=== PATIENT | female | born 1995 | race Caucasian/White ===

== ENCOUNTER 2021-04-24 18:46 | Emergency (ER) | payer OTHER, SELFPAY ==
--- NOTE | ~2021-04-24 | XR_ITS ---
EXAMINATION: XR chest 2V 04/24/2021 19:22 INDICATION: Chest pain PROCEDURE: 2 view chest COMPARISON: 07/26/2018 FINDINGS: The lungs are clear. The cardiomediastinal silhouette is within normal limits. There are no pleural effusions. There is no pneumothorax suspected. IMPRESSION: 1: NO ACUTE CARDIOPULMONARY DISEASE. Reviewed, dictated and finalized at location A. RUMENTATION SUPERVISOR
--- NOTE | 2021-04-24 18:49 | ECG_ITS ---
Measurements Intervals [place] Rate: 118 P: 65 MT: 118 QRS: 47 QRSD: 87 T: 44 QT: 315 QTc: 442 Interpretive Statements SINUS TACHYCARDIA WITH SHORT MT INTERVAL POSSIBLE LEFT ATRIAL ENLARGEMENT [-0.1mV P WAVE IN V1/V2] RSR' IN V1/V2 NONSPECIFIC ST DEPRESSION [0.05+ mV ST DEPRESSION] BORDERLINE ECG NO PREVIOUS ECG AVAILABLE FOR COMPARISON Electronically Signed On 04-25-2021 13:56:39 CERTIFIED NURSING ASSISTANT INSTRUCTOR by Isaias Rasmussen M.D.
[2021-04-24 19:02] VITALS: BP 151/84; PULSE 120; RESP 16; TEMP 36.6; O2SAT 100
--- NOTE | 2021-04-24 19:20 | ED.GENADULT ---
HPI - General Adult General Chief complaint: Chest Pain Stated complaint: Chest pain Source: patient Mode of arrival: ambulatory Limitations: no limitations History of Present Illness HPI narrative: Patient presents for evaluation of chest pain and palpitations. She indicates approximately a week ago she traveled down to [place]. She was in a motor vehicle for about a [address] Upon arriving there she developed palpitations. She cannot provide me with duration of time with which symptoms persisted. She states upon arriving home she has had several episodes of chest pain. Pain is in the sternal region and described as pounding , rated 8/10 in severity. She states she had chest pain earlier today that lasted approximately 2 hours in duration. She cannot tell me whether she is currently having chest pain. She denies any shortness of breath or leg swelling. No personal history of PE or DVT. However her maternal grandfather had a blood clot per her reports. She is not on exogenous estrogen. She does use an electronic cigarette. She states that she consumes quite a bit of caffeine and is wondering if that may be causing her symptoms. She has attempted to perform deep breathing exercises to assist with her symptoms. Denies any significant life stressors which could cause palpitations. Related Data Home Medications Medication Instructions Recorded Confirmed No Home Medications 04/24/21 04/24/21 Allergies Allergy/AdvReac Type Severity Reaction Status Date / Time nitrofurantoin Allergy Unknown RASH Verified 07/26/18 10:13 Review of Systems Review of Systems: CONSTITUTIONAL: Denies fever, chills, or sweats. EYES: Denies visual changes, redness, or discharge. ENT: Denies rhinorrhea, congestion, sore throat, or otalgia. CARDIOVASCULAR: Reports chest pain and palpitations. Denies edema. RESPIRATORY: Denies cough or dyspnea. GASTROINTESTINAL: Denies abdominal pain, nausea, vomiting, or diarrhea. GENITOURINARY: Denies dysuria or hematuria. SKIN: Denies rash or itching. MUSCULOSKELETAL: Denies back pain, joint pain, or myalgia. NEUROLOGIC: Denies headache, numbness, dizziness, or weakness. PSYCHIATRIC: Denies anxiety or depression. 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 HEAD: Normocephalic, atraumatic. EYES: PERRLA and EOMI. ENT: Nares clear, no rhinorrhea or epistaxis. Mucous membranes moist. Oropharynx without tonsillar hypertrophy exudate or other lesions. Bilateral TMs [place] nonbulging NECK: Supple. No adenopathy or masses. No carotid bruits or JVD CHEST: Clear to auscultation. No respiratory distress. No wheezes rales or rhonchi HEART: Heart rate variable, fluctuating between 104 and 115. No murmur heard. Normal peripheral pulses. ABDOMEN: Soft, nontender, nondistended, normal active bowel sounds. EXTREMITIES: Normal range of motion. No edema. SKIN: Warm, dry, no rash. NEURO: No focal deficits. Alert and oriented x3. PSYCH: Nor
== END 2021-04-24 19:27 | disposition short-term general hospital (02) ==
PROVIDERS: Emergency Provider Nurse Practitioner
DX: R07.9 Chest pain, unspecified (principal); F17.290 Nicotine dependence, other tobacco product, uncomplicated
CPT/HCPCS: 71046; 93005; 99213; G0463

== ENCOUNTER 2021-04-24 19:40 | Emergency (ER) | payer OTHER, SELFPAY ==
[2021-04-24] VITALS (11 sets, daily range): BP systolic 127–139; BP diastolic 79–83; PULSE 97–128; RESP 10–29; TEMP 37; O2SAT 96–100
--- NOTE | ~2021-04-24 | CT_ITS ---
EXAMINATION: CTA chest PE protocol DATE: 04/24/2021 22:59 INDICATION: Chest pain. TECHNIQUE: Computed tomography angiography (CTA) of the chest was performed with 100 mL Omnipaque-350 intravenous contrast timed to evaluate the pulmonary arteries. Coronal maximum intensity projection 3D-reconstructions were created by the technologist. Automated exposure control and iterative reconst ruction technique were employed. The dose-length product was 186.80 mGy-cm. COMPARISON: None. FINDINGS: There is no pneumonia or pleural effusion. The heart size is normal. No pericardial effusio n. There is no pulmonary embolus. The bones are unremarkable. IMPRESSION: 1. No pulmonary embolus. Sensitivity is mildly decreased by motion artifact. Reviewed, dictated and finalized at location A. T GROWER
--- NOTE | 2021-04-24 19:42 | ECG_ITS ---
Measurements Intervals [place] Rate: 100 P: VT: 0 QRS: 70 QRSD: 90 T: 42 QT: 323 QTc: 418 Interpretive Statements SINUS TACHYCARDIA AND INTERMITTENT ATRIAL TACHYCARDIA WITH SHORT VT INTERVAL RSR' V1/V2 NONSPECIFIC ST DEPRESSION [0.05+ mV ST DEPRESSION] ABNORMAL ECG COMPARED TO ECG 04/24/2021 18:59:00 ATRIAL TACHYCARDIA NOW PRESENT Electronically Signed On 04-25-2021 13:58:46 [employer] by Isaias Rasmussen M.D.
[2021-04-24 20:03] LABS: Basophils Absolute Auto 0.1 K/mm3 (0.0-0.1); Basophils Percent Auto 0.5 % (0.2-1.2); Eosinophils Percent Auto 0.2 % (0-4.4); Hematocrit 41.2 % (37.0-47.0); Hemoglobin 13.8 g/dL (12.0-15.0); Immature Granulocyte Absolute 0.04 K/mm3 (0.00-0.031); Immature Granulocyte Percent A 0.3 % (0-0.5); Lymphocytes Absolute Auto 1.17 K/mm3 (0.9-3.2); Lymphocytes Percent Auto 7.7 % (18.3-44.2); Mean Corpuscular HGB Conc 33.5 g/dl (32-36); Mean Corpuscular Hemoglobin 30.2 pg (26-34); Mean Corpuscular Volume 90.2 fl (80-100); Monocytes Absolute Auto 0.7 K/mm3 (0.1-0.6); Monocytes Percent Auto 4.6 % (2.6-8.5); Neutrophils Absolute Auto 13.2 K/mm3 (1.3-6.7); Neutrophils Percent Auto 86.7 % (45.5-73.1); Platelet Count Result 246 k/mm3 (150-375); Red Blood Count 4.57 M/mm3 (4.2-5.4); Red Cell Distribution Width 12.4 % (11.5-14.5); White Blood Count 15.3 K/mm3 (4.5-10.0)
--- NOTE | 2021-04-24 20:13 | ED.CHESTPAIN ---
HPI - Chest Pain General Chief Complaint: Chest Pain Stated Complaint: chest pain Time Seen by Provider: 04/24/21 19:46 Source: patient Mode of arrival: ambulatory Limitations: no limitations History of Present Illness HPI narrative: Patient is a 25-year-old female who presented to the ED from urgent care with complaints of lower midsternal chest pain. Patient she reports she went to [place] 1 week ago and drove 14 hours in the car at that time. She had no issues in the car, but experienced pain in her lower midsternal chest while at a concert a few days later. She also reported having palpitations at that time, described as though her heart was fluttering. The pain lasted for approximately 45 minutes before resolving. She did not take anything for this. Patient then drove 14 hours back a few days ago and developed pain in her lower midsternal chest again tonight around 4 PM. The pain has persisted tonight described as a dull ache. She also noted her heart rate to be elevated tonight, but notes she does feel anxious about the pain. Patient then went to an urgent care tonight and was referred here for further evaluation and PE rule out. Patient has Nexplanon control and does vape daily. She also notes she frequently drinks caffeine, but has been trying to avoid this the past few days due to her symptoms. Patient denies any other complaints, shortness of breath, cough, hemoptysis, BLE pain or edema, pain with inspiration, nausea, vomiting, headache, fever, chills. Related Data Home Medications Medication Instructions Recorded Confirmed No Home Medications 04/24/21 04/24/21 Allergies Allergy/AdvReac Type Severity Reaction Status Date / Time nitrofurantoin Allergy Unknown RASH Verified 04/24/21 19:50 Review of Systems Review of Systems: CONSTITUTIONAL: Denies fever, chills, or sweats. ENT: Denies rhinorrhea, congestion. CARDIOVASCULAR: Reports lower midsternal chest pain and fluttering palpitations. Denies BLE edema. RESPIRATORY: Denies cough or dyspnea. GASTROINTESTINAL: Denies abdominal pain, nausea, vomiting, or diarrhea. GENITOURINARY: Denies dysuria or hematuria. MUSCULOSKELETAL: Denies back pain, BLE pain. NEUROLOGIC: Denies headache, numbness, or weakness. PSYCHIATRIC: Reports anxiety. Denies depression. 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 HEAD: Normocephalic, atraumatic. NECK: Supple. No adenopathy, no masses. RESPIRATORY: Airway patent, respirations nonlabored. Clear to auscultation bilaterally, no rales, rhonchi, wheezing. CARDIOVASCULAR: Tachycardia, regular rhythm without murmurs, rubs, or gallops. Peripheral pulses 2+ and equal bilaterally. ABDOMINAL: Soft, nontender, nondistended, no hepatosplenomegaly. Normoactive BS. MUSCULOSKELETAL: Moves all extremities. Strength/ROM intact without gross deformities or TTP. No edema. No calf tenderness. SKIN: Warm, dry, normal color.
[2021-04-24 20:14] LABS: Alanine Aminotransferase 18 U/L (4-35); Albumin Level 5.1 g/dL (3.5-5.1); Alkaline Phosphatase 67 U/L (38-126); Anion Gap 12 mmol/L (8-16); Aspartate Amino Transferase 32 U/L (14-36); Bilirubin,Total 0.5 mg/dL (0.2-1.3); Blood Urea Nitrogen 12 mg/dL (7-17); Calcium 9.5 mg/dL (8.4-10.2); Carbon Dioxide 22 mmol/L (22-30); Chloride 104 mmol/L (98-107); Estimated CRCL calculation 91 ml/min; Estimated Glomerular Filt Rate > 60; Glucose 118 mg/dL (65-110); Lipase 41 U/L (23-300); Potassium 3.4 mmol/L (3.4-5.0); Sodium 138 mmol/L (137-145)
[2021-04-24 20:16] LABS: INR 1.1; Prothrombin Time 13.6 Seconds (11.1-14.7)
[2021-04-24 20:17] LABS: Partial Thromboplastin Time 27.6 SECONDS (22.3-36.8)
[2021-04-24 20:25] LABS: Troponin I < 0.012 ng/mL (0.000-0.034)
[2021-04-24] MEDS: ASPIRIN 81 MG CHEWABLE TABLET 324 MG PO (20:29)
[2021-04-24 20:55] LABS: D Dimer 0.27 ug/mL (<0.48)
[2021-04-24 21:20] LABS: Add Urine Microscopic? YES; Appearance Urine Clear (Clear); Bilirubin Urine Negative (Negative); Blood Urine 1+ (Negative); Color Urine Straw (Yellow); Glucose Urine UA Negative (Negative); Ketones Urine 1+ mg/dL (Negative); Leukocyte Esterase Ur Negative LEU/UL (Negative); Mucus Urine Rare /lpf; Nitrate Urine Negative (Negative); Protein Urine Negative (Negative); RBC Urine 0-2 /hpf (0-2); Specific Grav Ur 1.005 (1.001-1.035); Urobilinogen Urine Negative mg/dL (<2.0); WBC Urine 0-3 /hpf
[2021-04-24 22:24] LABS: Pregnancy On Board Control Positive; Urine Pregnancy Test Negative
[2021-04-24] MEDS: SODIUM CHLORIDE 0.9% IV 1,000 ML 999 ML IV CONT (22:24)
--- NOTE | 2021-04-24 22:46 | PC.NURSE ---
Patient taken to CT via w/c.
== END 2021-04-24 23:53 | disposition home or self-care (01) ==
PROVIDERS: Emergency Medicine; Physician Assistant; Emergency Provider Emergency Medicine; PCP Family Medicine Sports Medicine
DX: R07.89 Other chest pain (principal); R00.2 Palpitations; F17.290 Nicotine dependence, other tobacco product, uncomplicated; R00.0 Tachycardia, unspecified; R94.31 Abnormal electrocardiogram [ECG] [EKG]
CPT/HCPCS: 36415; 71046; 71275; 80053; 81001; 81025; 83690; 83735; 84443; 84484; 85025; 85380; 85610; 85730; 93005; 96360; 99284; A9270; J7030; Q9967

== ENCOUNTER 2022-12-29 12:00 | Emergency (ER) | payer OTHER, SELFPAY ==
[2022-12-29 12:12] VITALS: BP 116/89; PULSE 73; RESP 16; TEMP 36.8; O2SAT 100
[2022-12-29 12:13] VITALS: BP 116/89; PULSE 73; RESP 16; TEMP 36.8; O2SAT 100
--- NOTE | 2022-12-29 12:15 | ED.SKABFB ---
HPI - Skin/Abscess/Foreign Bdy General Chief complaint: Skin/Abscess/Foreign Body Stated complaint: RASH Time Seen by Provider: 12/29/22 12:15 Source: patient Mode of arrival: ambulatory Limitations: no limitations History of Present Illness HPI narrative: 27-year-old female presented for complaint of poison solo to both arms. She states she was clearing brush 2 days ago. The rash spread over the arms and to the neck and small spot to the abdomen since yesterday. Endorses itching and oozing from some of the sites. She has applied calamine lotion and did an [id number] scrub for itching. Denies lip, tongue, or throat swelling, shortness of breath or wheezing. Denies changes to soap, detergent, lotion, or any other exposures. No one else in the house or any contacts with similar symptoms. Related Data Allergies Allergy/AdvReac Type Severity Reaction Status Date / Time nitrofurantoin Allergy Unknown RASH Verified 12/29/22 12:12 Review of Systems Review of Systems: CONSTITUTIONAL: Denies body aches, fever, chills, or sweats. EYES: Denies visual changes, redness, or discharge. ENT: Denies rhinorrhea, congestion CARDIOVASCULAR: Denies chest pain, palpitations, or edema. RESPIRATORY: Denies cough or dyspnea. GASTROINTESTINAL: Denies abdominal pain, nausea, vomiting, or diarrhea. SKIN: Reports itchy rash MUSCULOSKELETAL: Denies back pain, joint pain, or myalgia. NEUROLOGIC: Denies headache, numbness, tingling, or weakness. 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 Please see nursing chart for further information. There is no relevant family history pertinent to the presenting complaint Exam Narrative: GENERAL: Well-appearing HEAD: Normocephalic, atraumatic. EYES: conjunctivae clear, and EOMI. ENT: Mucous membranes moist. Oropharynx without edema, erythema or lesions. NECK: Supple. No lymphadenopathy CHEST: Clear to auscultation. HEART: Regular rate and rhythm. SKIN: Warm, dry. Diffuse vesicles on erythematous base to bilateral forearms, distal forearms with oozing from large clusters of vesicles, right forearm also with a linear pattern. Left neck and left face with small clusters of vesicles. Left abdomen with approx 1cm diameter vesicles. C/w poison solo. No induration or purulent drainage. Nontender. NEURO: Alert and oriented x3. Course Course Emergency Course: Patient is aware of diagnosis, understands and agrees to treatment plan. Anticipatory guidance given. Patient agrees to follow-up as directed and is aware of reasons to seek care at the emergency department. Portions of this record may have been created with voice recognition software Level of Care: Express Care Visit Vital Signs Vital signs: Vital Signs Temperature 98.2 F 12/29/22 12:12 Pulse Rate 73 12/29/22 12:12 Respiratory Rate 16 12/29/22 12:12 Blood Pressure 116/89 12/29/22 12:12 Pulse Oximetry 100 12/29/22 12:12
== END 2022-12-29 12:29 | disposition home or self-care (01) ==
PROVIDERS: Emergency Provider Nurse Practitioner Family
DX: L25.9 Unspecified contact dermatitis, unspecified cause (principal); F17.290 Nicotine dependence, other tobacco product, uncomplicated
CPT/HCPCS: 99213; G0463

== ENCOUNTER 2024-04-22 10:42 | Outpatient (CLI) | payer BC, SELFPAY | END 2024-04-22 10:43 | disposition home or self-care (01) | PROVIDERS: PCP Family Medicine; Visit Provider Advanced Practice Midwife | DX: R00.2 Palpitations (principal) | CPT/HCPCS: 93242 ==

== ENCOUNTER 2024-07-08 12:51 | Outpatient (CLI) | payer BC, SELFPAY ==
--- NOTE | ~2024-07-08 | US_ITS ---
EXAMINATION: US venous doppler [facility] DATE: 07/08/2024 13:39 INDICATION: Right lower limb pain TECHNIQUE: Grayscale ultrasound images without and with compression and Doppler ultrasound images of the bilateral lower extremity veins were obtained. COMPARISON: None. FINDINGS: The visualized portions of right common femoral vein, profunda (deep) femoral vein, femoral vein, pop liteal vein, posterior tibial veins, peroneal veins, gastrocnemius vein and greater saphenous vein ou tflow are patent. The visualized portions of left common femoral vein, profunda femoral vein, femoral vein, popliteal v ein, posterior tibial veins, peroneal veins, gastrocnemius vein and greater saphenous vein outflow ar e patent. IMPRESSION: No deep venous thrombosis in the bilateral lower extremities. No sonographic abnormality within the area of clinical concern (the right leg, inferior to the knee). Reviewed, dictated and finalized at location A.
--- OUTSIDE RECORDS SUMMARY | 2024-07-08 12:57 | XMS_ITS | Clinical Summary ---
Author Organization [facility] [place] Address [address] [place] [id number] Care Team Providers Care Stewardess Supervisor Name Role Phone Elder Herman MD Primary Care Provider Allergies Active Allergy Reactions Criticality Noted Date Comments Nitrofurantoin Hives,Rash Low 04/16/2023 Medications No known medications Active Problems No known active problems Family History Medical History Relation Comments No Known Problems Father Atrial fibrillation Maternal Grandmother No Known Problems Mother Relation Status Comments Father Maternal Grandmother Mother Social History Tobacco Use Types Packs/Day Years Used Date Smoking Tobacco: Never Passive Smoke Exposure: Never Smokeless Tobacco: Never Tobacco Cessation:Counseling Given: Not Answered Alcohol Use Standard Drinks/Week Comments Yes 4 (1 standard drink = 0.6 oz pur e alcohol) Comments Unknown Sex and Gender Information Value Date Recorded Sex Assigned at Not on file Legal Sex Female 10:41 AM ANIMAL CARE TAKER Gender Identity Not on file Sexual Orientation Not on file Last Filed Vital Signs Vital Sign Reading Time Taken Comments Blood Pressure 118/68 10/08/2023 1:33 PM CDT Pulse 61 10/08/2023 1:33 PM CDT Temperature - - Respiratory Rate - - Oxygen Saturation 98% 10/08/2023 1:33 PM CDT Inhaled Oxygen Concentration - - Weight 82.8 kg (182 lb 9.6 oz) 10/08/2023 1:33 P M CDT Height 172.7 cm (5' 8 ) 10/08/2023 1:33 PM CDT Body Mass Index 27.76 10/08/2023 1:33 PM CDT Plan of Treatment Health Maintenance Due Date Last Done Comments Cervical Cancer Screening Pa p Smear (Age 21 to 29) Every 3 Years 1996 Cervical Cancer Screening 1996 Annual Physical 09/28/1999 Hepatitis C 2014 DTaP, Tdap and Td Vaccines ( 1 - Tdap) 09/28/2015 Hepatitis B Vaccines (1 of 3 - 19+ 3-dose series) 09/28/2015 COVID-19 Vaccine (1 - 2023-2 5 season) 2023 HPV Vaccines Aged Out No longer eligi ble based on patient's age to complete this topic Meningococcal B Vaccine Aged Out No l onger eligible based on patient's age to complete this topic Meningococcal Vaccine Aged Out No leanne jacki eligible based on patient's age to complete this topic Pneumococcal Vaccine: Pediat rics (0 to 5 Years) and At-Risk Patients (6 to 49 Years) Aged Out No longer eligible b ased on patient's age to complete this topic RSV Immunizations Under 20 Months Aged Out No longer eligible based on patient's age to complete this topic Insurance [facility] Care Teams Stewardess Supervisor Relationship Specialty Start Date End Date Elder Herman MD [address] [id number] PCP - General FAMILY PRACTICE 04/09/23
--- OUTSIDE RECORDS SUMMARY | 2024-07-08 12:57 | XMS_ITS | Continuity of Care Document ---
Author Organization [facility] Address [address] [place] [address] Care Team Providers Care Fire Control Technician Name Role Phone MULTICARE SPECIALIST Primary Care Provider Assessment No assessment recorded. Plan of Treatment Reminders Order Date Submit Date Provider Last Modified By Organization Details Last Modified Time Details Appointments U/S OB GROWTH 2024 11:00A M ULTRASOUND Not available Not available Not available OB ROUTINE 2024 11:30A M Cyndee Hill CNM Not available Not available Not available Lab None recorde d. Referral None recorde d. Procedures None recorde d. Surgeries None recorde d. Imaging US, obstetr ic, follow- up 2024 [id number] [email or web address] [facility], [address], [place], [address], 07/08/2024 12:58:52 Medication Orders None recorde d. Patient TargetsNo targets recorded. Patient InstructionsNo instructions recorded. Reason for Referral None Reported. Results Created Date Observation Date Name Description Value Unit Range Abnormal Flag Note LastModifiedBy Organization Detail LastModifiedTime 02/21/1902/22/2024 US, obste tric, nucha l trans lucen cy No observ ation record ed. [facility] [address], [place], [address], 02/22/2024 17:07:29 02/21/19 25 02/22/2024 US, obste tric, nucha l trans lucen cy No observ ation record ed. [email or web address] [address], [place], [address], 02/23/2024 13:00:14 04/16/19 25 04/16/2024 US, obste tric, 2nd or 3rd trime ster No observ ation record ed. [email or web address] [facility] [address], [place], [address], 04/16/2024 18:02:55 04/16/19 25 04/16/2024 US, obste tric, follo w-up No observ ation record ed. [email or web address] [address], [place], [address], 04/21/2024 22:25:35 05/05/19 25 04/22/2024 cathy r monit or No observ ation record ed. [email or web address] [facility] [address], [place], [address], 05/06/2024 16:52:47 05/15/19 25 05/14/2024 US, obste tric, follo w-up No observ ation record ed. [email or web address] [facility] [address], [place], [address], 05/14/2024 18:22:56 05/15/19 25 05/14/2024 US, obste tric, follo w-up No observ ation record ed. [email or web address] [address], [place], [address], 05/29/2024 13:24:47 06/11/19 25 06/10/2024 US, obste tric, follo w-up No observ ation record ed. [email or web address] [address], [place], [address], 06/16/2024 15:41:53 06/11/19 25 06/10/2024 US, obste tric, follo w-up No observ ation record ed. [email or web address] [address], [place], [address], 06/10/2024 14:45:01 06/25/19 25 06/24/2024 US, obste tric, limit ed No observ ation record ed. [email or web address] [address], [place], [address], 06/24/2024 13:34:37 06/25/19 25 06/24/2024 US, obste tric, follo w-up No observ ation record ed. [email or web address] [address], [place], [address], 07/01/2024 13:40:58 07/09/19 25 07/08/2024 US, obste tric, follo w-up No observ ation record ed. [facility] [address], [place], [address], 07/08/2024 13:55:54 07/09/19 25 07/08/2024 US, obste tric, follo w-up No observ ation record ed. [email or web address] [address], [place], [address], 07/08/2024 12:40:39 Result Notes None recorded. Problems Name Problem SNOMED Code Status Onset Date Resolution Date Notes Provider Name and Address Organization Details Recorded Time Uses contrace ptive implant 339889866 Completed 201909/16/2020 due out 05/2022 Roberta hinds [facility] 12:20:31 Urinary tract infectio us disease 93166136 Completed 201609/16/2020 Urinary tract infectio n, site not specifie d;Practi ce ID: 0001 Roberta hinds [facility] 12:20:28 Evaluati on finding Completed 201609/16/2020 Hematuri a, unspecif ied;Prac yared ID: 0001 Roberta hinds, [facility] 12:19:42 Procedur e Completed 201609/16/2020 Enctr srvlnc implanta ble subderma l contrace ptive;Pr actice ID: 0001 Roberta hinds, [facility] 12:19:59 Pregnanc y test negative [id number] Completed 201609/16/2020 Encounte r for pregnanc y test, result negative ;Practic e ID: 0001 Roberta hinds, [facility] 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 12:20:12 Sexually transmit ezekile infectio us disease 8515863 Completed 201709/16/2020 Unspecif ied sexually transmit ezekiel disease; Practice ID: 0001 Roberta hinds, [facility] 12:20:05 Acute vaginiti s 18925481 Completed 201709/16/2020 Acute vaginiti s;Practi ce ID: 0001 Roberta hinds, [facility] 12:19:31 Contrace ptive sheath status [id number] Completed 201909/16/2020 Encounte r for initial prescrip tion of other contrace ptives;P ractice ID: 0001 Roberta hinds, [facility] 12:19:[address] Concept Completed 201709/16/2020 Encntr for general adult medical exam w/o abnormal findings ;Recorde d Elsewher e: No Locat ion: [facility] S ource: EHR Optical Laboratory Technician paulo: N Practi ce ID: 0001 Feliz lable Time: 01:30:00 PM Roberta Coleman [facility] [address] 12:20:[address] Concept Completed 201509/16/2020 Encntr for routine child health exam w/o abnormal findings ;Recorde d Elsewher e: No Locat ion: [facility] S ource: EHR Optical Laboratory Technician paulo: N Practi ce ID: 0001 Feilz lable Time: 01:30:00 PM Roberta Coleman [facility] 12:20:10 Speciali zed medical examinat ion Completed 201409/16/2020 ROUTINE PHYSICAL THERAPY COORDINATOR EXAMINAT ION;Jon rded Elsewher e: No Locat ion: [facility] S ource: EHR Optical Laboratory Technician paulo: N Practi ce ID: 0001 Feliz lable Time: 01:30:00 PM Roberta Coleman [facility] 12:20:18 Syphilis test finding [id number] Completed 201509/16/2020 Encntr screen for infectio ns w sexl mode of transmis s;Record ed Elsewher e: No Locat ion: [facility] S ource: EHR Optical Laboratory Technician paulo: N Practi ce ID: 0001 Feliz lable Time: 01:30:00 PM Roberta Coleman [facility] 12:20:23 Screenin g for malignan t neoplasm of cervix Completed 201309/16/2020 Screenin g for malignan t neoplasm s of the cervix;R ecorded Elsewher e: No Locat ion: [facility] S ource: EHR Optical Laboratory Technician paulo: N Practi ce ID: 0001 Feliz lable Time: 09:15:00 AM Roberta Coleman [facility] 1 12:20:02 Speciali zed medical examinat ion Completed 201409/16/2020 Other specifie d chlamydi al diseases ;Recorde d Elsewher e: No Locat ion: [facility] S ource: EHR Optical Laboratory Technician paulo: N Practi ce ID: 0001 Feliz lable Time: 01:30:00 PM Roberta hinds, [facility] [address] 12:20:[address] Concept Completed 201909/16/2020 Nexplano n;Record ed Elsewher e: No Locat ion: [facility] S ource: EHR Optical Laboratory Technician paulo: N Practi ce ID: 0001 Feliz lable Time: 01:00:00 PM Roberta hinds, [facility] 1 12:20:15 Implanta tion of subcutan eous contrace ptive Completed 201309/16/2020 Insertio n of implanta ble subderma l contrace ptive;Re corded Elsewher e: No Locat ion: [facility] S ource: EHR Optical Laboratory Technician paulo: N Practi ce ID: 0001 Feliz lable Time: 10:30:00 AM Roberta hinds, [facility] 1 12:19:48 Venereal disease screenin g Completed 201409/16/2020 Screenin g examinat ion for venereal disease; Recorded Elsewher e: No Locat ion: [facility] S ource: EHR Optical Laboratory Technician paulo: N Practi ce ID: 0001 Feliz lable Time: 01:30:00 PM Roberta hinds [facility] 1 12:20:33 Infectio n screenin g Completed 201509/16/2020 Encounte r for screenin g for oth infec/pa rastc diseases ;Recorde d Elsewher e: No Locat ion: [facility] S ource: EHR Optical Laboratory Technician paulo: N Practi ce ID: 0001 Feliz lable Time: 01:30:00 PM Roberta hinds, [facility] 12:19:44 Leukorrh ea 149510264 Completed 201409/16/2020 Leukorrh ea, not specifie d as infectiv e;Record ed Elsewher e: No Locat ion: [facility] S ource: EHR Optical Laboratory Technician paulo: N Practi ce ID: 0001 Feliz lable Time: 04:00:00 PM Roberta Coleman [facility], [facility] 12:19:51 Dysuria 40439886 Completed 201409/16/2020 Dysuria; Recorded Elsewher e: No Locat ion: [facility] S ource: EHR Optical Laboratory Technician paulo: N Practi ce ID: 0001 Feliz lable Time: 04:00:00 PM Roberta hinds, [facility] 12:19:39 Microsco pic hematuri a [id number] Completed 201409/16/2020 MICROSCO PIC HEMATURI A;Practi ce ID: 0001 Roberta Coleman lizet, [facility] 12:19:53 Adult health examinat ion Completed 201409/16/2020 Routine general medical examinat ion at a health care facility ;Practic e ID: 0001 Roberta hinds, [facility] 12:19:33 Pregnanc y 63683086 Active 2024 Roberta Coleman [facility], [facility] 5 14:14:04 Palpitat ions 23252760 Active 72hr Holter monitor - order faxed 04/16 [place] outpatie nt cardiolo gy Arlen Liu hinds, [facility] 5 15:55:52 Palpitat ions 78391715 Active 72hr Holter monitor - order faxed 04/16 [place] outpatie nt cardiolo gy Arlen Liu hinds, [facility] 15:55:51 Polyhydr amnios 62290807 Active 2024 Cyndee Hill CNM [address], [place], [address], [facility] 09:13:30 Problem Notes None recorded. Procedures Surgical History Date Name Laterality Status Provider Name and Address Organization Details Recorded Time 07/31/19 24 Nexplanon Removal completed Estela Varma MELIZA- [address], [place], [address], [facility] 07/31/2023 14:52:59 07/10/19 24 Date of Last Pap Smear completed Roberta Coleman [facility] 07/10/2023 14:11:06 04/20/19 23 Control Implant Insertion completed Cyndee Hill CNM [address], [place], [address], [facility] 04/19/2022 15:16:57 04/20/19 23 Nexplanon Removal completed Cyndee Hill CNM [address], [place], [address], [facility] 04/19/2022 15:19:55 10/27/19 22 Colposcopy completed Cyndee Hill CNM [address], [place], [address], [facility] 10/26/2021 11:51:08 10/27/19 22 Colposcopy completed Roberta Coleman [facility] 10/26/2021 11:06:19 10/27/19 22 Colposcopy completed Roberta Coleman [facility] 10/26/2021 11:06:12 02/19/19 20 extraction of wisdom tooth completed Roberta Coleman [facility] 09/21/2021 12:37:26 Imaging Results Imaging Date Name Status LastModified by Organiz ation Details LastModified Time 07/08/2024 US, obstetric, follow-up completed [facility] [address], [place], [address], 07/08/2024 13:55:54 Procedure Notes None recorded. Medical Equipment None Reported. Allergies Allergen ID Allergen Name Allergen Category Reaction Reaction Severity Criticality Documentation Date Start Date Code Code System Note Provider Name and Address Organization Details Recorded Time 788 nitrofura ntoin medicatio n Not available Not available Not available 07/18/2019 7454 RxNorm Chio hinds, [facility] 0 14:41:01 Medications Name Sig Start Date Stop Date Status Note LastModified by Organization Details LastModified Time acetamino phen 325 mg tablet take 1 tablet by oral route every 4 hours as needed 02/14 completed Prescrib ed Elsewher e: Yes Loca tion: [facility] M odify By: annette crawford DateTime : 03/13/19 13 02:15:00 PM Not Available Not Available Not Available fluconazo le 150 mg tablet TAKE ONE TABLET BY MOUTH A ONE-TIME DOSE 10/26 completed Not Available Not Available Not Available penicilli n V potassium 500 mg tablet 08/28 completed Not Available Not Available Not Available metronida zole 500 mg tablet Take 1 tablet twice a day by oral route. 10/26 completed Not Available Not Available Not Available amoxicill in 500 mg tablet take 1 tablet by oral route 3 times every day for 10 days 07/20 completed Prescrib ed Elsewher e: No Locat ion: [facility] M odify By: jorge buenrostro DateTime : 07/12/19 18 01:45:00 PM Not Available Not Available Not Available Macrobid 100 mg capsule take 1 capsule by oral route 2 times every day for 7 days with food 11/22 completed Prescrib ed Elsewher e: No Locat ion: [facility] M odify By: erick buenrostro DateTime : 11/17/19 15 04:00:00 PM Not Available Not Available Not Available cephalexi n 500 mg capsule TAKE 1 CAPSULE BY MOUTH EVERY 12 HOURS 06/08 completed Not Available Not Available Not Available polymyxin B sulfate 10,000 unit-trim ethoprim 1 mg/mL eye drops 09/21 completed Not Available Not Available Not Available Lo Loestrin Fe 1 mg-10 mcg (24)/10 mcg (2) tablet take 1 tablet by oral route every day 04/11 completed Prescrib ed Elsewher e: No Locat ion: [facility] M odify By: [email or web address] trick En counter DateTime : 03/13/19 13 02:15:00 PM Not Available Not Available Not Available Nexplanon 68 mg subdermal implant Inject 1 implant by subcutan eous route. 07/30 completed Not Available Not Available Not Available Solosec [address] granules in packet Take 2 g by oral route for 1 day. 08/28 completed Not Available Not Available Not Available Fluarix Quad (PF) 60 mcg (15 mcg x 4)/0.5 mL IM syringe ADM 0.5ML IM UTD 01/13 completed Not Available Not Available Not Available Twyneo 0.1 %-3 % topical cream APPLY A THIN LAYER TO THE FACE ONCE DAILY AT BEDTIME 10/03 completed Not Available Not Available Not Available Vitals Date Recorded Body weight Body mass index (BMI) Body height Systolic blood pressure Diastolic blood pressure Provider Name and Address Organization Details Last Updated DateTime 07/08/2024 27368.47 4 g 32 kg/m2 168.28 cm 129 mm[Hg] 76 mm[Hg] Roberta Coleman [facility] 12:31:04 Social History Question Answer Notes LastModified by Organizat ion Details LastModified Time Tobacco Smoking Status Former Smoker Liz hinds [facility] 10/26/2021 10:57:14 Do You Have An Advance Directive? No [email or web address] Information not available 09/17/2020 If You Are , What Was Your Level Of Alcohol Consumption Prior To ? Occasional [email or web address] Information not available 02/22/2024 How Many Years Have You Consumed Alcohol? 4 [email or web address] Information not available 09/21/2021 Are You Blind Or Do You Have Difficulty Seeing? No [email or web address] Information not available 09/17/2020 What Is Your Level Of Caffeine Consumption? Occasional [email or web address] Information not available 09/21/2021 How Much Tobacco Do You Chew? None [email or web address] Information not available 09/17/2020 In The 14 Days Before Symptom Onset, Have You Had Close Contact With A Laboratory-confir med COVID-19 While That Case Was Ill? No [email or web address] Information not available 09/17/2020 In The 14 Days Before Symptom Onset, Have You Had Close Contact With A Person Who Is Under Investigation For COVID-19 While That Person Was Ill? No [email or web address] Information not available 09/17/2020 Have You Been To An Area Known To Be High Risk For COVID-19? No [email or web address] Information not available 09/17/2020 Are You Deaf Or Do You Have Serious Difficulty Hearing? No [email or web address] Information not available 09/17/2020 What Type Of Diet Are You Following? REGULAR [email or web address] Information not available 09/17/2020 What Is The Highest Grade Or Level Of School You Have Completed Or The Highest Degree You Have Received? [id number] [email or web address] Information not available 09/17/2020 Are There Any Guns Present In Your Home? No [email or web address] Information not available 09/17/2020 What Was The Date Of Your Most Recent Tobacco Screening? 07/08/2024 [email or web address] Information not available 07/08/2024 Have You Ever Been Counseled For Unhealthy Alcohol Use? No [email or web address] Information not available 10/26/2021 Do You Use Protection During Sex? Usually [email or web address] Information not available 09/17/2020 Do You Use Your Seat Belt Or Car Seat Routinely? Yes [email or web address] Information not available 09/17/2020 Do You Have Smoke And Carbon Monoxide Detectors In Your Home? Yes [email or web address] Information not available 09/17/2020 How Much Tobacco Do You Smoke? No [email or web address] Information not available 08/29/2019 Do You Use Sunscreen Routinely? Yes [email or web address] Information not available 09/17/2020 Has Tobacco Cessation Counseling Been Provided? No [email or web address] Information not available 10/26/2021 Have You Used IV Drugs? No [email or web address] Information not available 09/17/2020 Do You Have Difficulty Walking Or Climbing Stairs? No Information not available 10/26/2021 Sex: Female Functional Status Question Answer Note LastModified by Organizat ion Details LastModified Time Do you use any illicit or recreational drugs? No [email or web address] Information not available 09/17/2020 Do you or have you ever used any other forms of tobacco or nicotine? No [email or web address] Information not available 10/26/2021 What is your level of alcohol consumption? None [email or web address] Information not available 02/22/2024 Are you able to walk? YESWOREST [email or web address] Information not available 09/17/2020 Are you able to care for yourself? 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 No [email or web address] Information not available 10/26/2021 What is your exercise level? Occasional [email or web address] Information not available 08/29/2019 Mental Status Question Answer Note LastModified by Organization D etails LastModified Time Do you feel stressed (tense, restless, nervous, or anxious, or unable to sleep at night)? [id number] Information not available 09/17/2020 Family History Relationship Description Onset Age of this Age Resolved Age Notes LastModified by Organization Details LastModified Time Mother Disorder of thyroid gland [email or web address] Not available 08/28 10:45:06 Brother Diabetes mellitus [email or web address] Not available 08/28 10:45:13 Maternal Grandmother Heart disease has pacema ker Not available 08/29/2019 10:45:25 Notes:No family history of C ancer, cervical Medical History Condition Response Allergies (Food, seasonal, environmental ) N Other N Breast Cancer N Drug/Latex Allergies/Reactions Y Blood Transfusion N Dermatologic Disorders N Lung Disease N Defects or Inherited Disease N Breast Problem N Gestational Diabetes N Hematologic disorders N Anesthesia Complications N History of STI N Deep Vein Thrombosis N Polycystic ovary syndrome N Anxiety Disorder N Autoimmune disease N Arthritis N Infertility N Polyps N Acid Reflux (GERD) N History of abnormal pap Y Cancer N Stroke N Varicosities N Neurologic/Epilepsy N Endometriosis N High Cholesterol N Headaches N Fibromyalgia N Kidney Disease N Heart Problems N Kidney or Bladder Problems N Thyroid Problems N GI Problems N Eating Disorder N Anemia N Art (IVF or FET) N Psychiatric Illness N Ovarian Cancer N Diabetes N Pulmonary (TB, Asthma) N Hepatitis/Liver Disease N Eczema N Urinary Tract Infection N Abuse/Domestic Violence N Asthma N Trauma/Violence N Depression/ depression N Heart Disease N Pre-Eclampsia N Hypertension N Osteoporosis N Thrombophilias N Gynecological History Statement/Question Response Abnormal Pap Y Date of Last Mammogram Date of LMP 11/20/2023 Was last menstrual period normal Y STIs/STDs N HPV Vaccine N Colposcopy 10/26/2021 Current Control Method Sexually Active? Y Menses Monthly N Date of DEXA bone scan Date of Last Pap Smear 07/10/2023 Sexual Problems? N LMP Definite N Obstetrics History GPAL:G 1 P 0 0 0 0 Type Value Living 0 Total 1 Past Encounters Encounter ID Performer Location Encounter Start Date Encounter Closed Date Diagnosis/Indication Diagnosis SNOMED-CT Code Diagnosis ICD10 Code Diagnosis Note [id number] Marcellus Barajas MD [facility] [address] [address] 06/10/2024 09:12:28 06/10/2024 10:09:31 Observational assessment 771470202 Z03.74 Z3A.29 [id number] Cyndee Hill CNM [facility] [address] [address] 06/10/2024 09:13:03 06/10/2024 12:02:42 Gestation period, 29 weeks 63717672 Z3A.29 [id number] Marcellus Barajas MD [facility] [address] [address] 06/24/2024 11:18:50 06/24/2024 12:11:00 Polyhydramnios 87929297 O40.3XX0 Z3A.31 [id number] TABITHA [facility] [address],[place] [address] 06/24/2024 11:19:11 06/25/2024 10:44:19 Gestation period, 31 weeks 52722211 Z3A.31 [id number] Marcellus Barajas MD [facility] [address],[place] [address] 07/08/2024 11:56:43 07/08/2024 12:58:52 Polyhydramnios 31923777 O40.3XX0 Z3A.33 [id number] Cyndee Hill [facility] [address],[place] [address] 07/08/2024 11:57:06 07/08/2024 12:58:44 Gestation period, 33 weeks 53306508 Z3A.33 Health Concerns Section Related Observation LastModified by Organization Detai ls LastModified Time None Recorded Concern Status LastModified by Organization Details LastModified Time None Recorded Payers Encounter Date Sequence Insurance Name Policy Number Policy Mccarthy Covered Member ID Mccarthy Member ID Guarantor Name 07/08/2024 1 [place] [id number] Umasa Hernandez [id number] Uma Hernandez OBGyn Episode Ob Episode Information Episode Created Date Number of Fetuses Patient Bloodtype Patient rh Status Prepregnancy Weight lbs Domestic Partner Domestic Partner Phone Father Name Voice Over Announcer Status 02/21/19 25 1 B Positive 179 OPEN Fetus Data First Name Last Name Admitted to NICU Weight (g) Sex Living Outcome Pediatric Complications Fetus ID Race Codes Race Delivery Type [id number] Problems Problem Notes KEYLA upper limits rpt 5/6 Problem Name Start Date End Date Resolution Snomed Code Not e Polyhydramnios 06/25/2024 70498544 Palpitations 45751662 72hr Ho lter monitor - order faxed 04/16 [place] [facility] Ishaan Calculation Initial Ishaan Date Initial Exam Date Initial Exam Provider Initial Ultrasound Date Last Menstrual Period Date Ultra Sound Weeks Gestation 08/26/2024 02/22/2024 01/16/2024 11/20/2023 7 Eighteen To Twenty Week Ishaan Update Ultra Sound Date Fundal Height At Umbil Quickening Date Ultra Sound Latest Weeks Gestation Final Ishaan Confirmed By Final Ishaan Confirmed Date Final Ishaan Date Ultra Sound Latest Days Gestation 0 08/27/19 25 0 Pre- Flowsheet Flowsheet Date 02/22/2024 Dowd Score Blood Edema Fundus Height Fundus Units Glucose Ketones Leukocytes Nitrite Labor Signs Protein Cervic Dilation Cervic Effacement Cervic Station neg none none trace Type Weight in lbs Pre/Post Dialysis Refused Weight 179.626832075856 BP Diastolic BP Location Tested BP Systolic BP Type 73 115 Fetus Heart Rate Present Fetus Movement A No Comments discussed increased heart ra te, precautions and education, if persists or worsens can order cardiac technologist, pt to monitor, G1, surgical medical hx unremarkable, start routine care, labs today us reviewed wnl Flowsheet Date 03/19/2024 Dowd Score Blood Edema Fundus Height Fundus Units Glucose Ketones Leukocytes Nitrite Labor Signs Protein Cervic Dilation Cervic Effacement Cervic Station trace Type Weight in lbs Pre/Post Dialysis Refused [id number] BP Diastolic BP Location Tested BP Systolic BP Type 73 110 Fetus Heart Rate Present A 140 Present Fetus Movement A No Comments Patient is having some disch arge. reviewed precautions, education, kinney, ok for excedrin tension, anatomy at next visit f/u 4 weeks Flowsheet Date 04/16/2024 Dowd Score Blood Edema Fundus Height Fundus Units Glucose Ketones Leukocytes Nitrite Labor Signs Protein Cervic Dilation Cervic Effacement Cervic Station Type Weight in lbs Pre/Post Dialysis Refused BP Diastolic BP Location Tested BP Systolic BP Type Fetus Heart Rate Present Fetus Movement Comments Flowsheet Date 04/16/2024 Dowd Score Blood Edema Fundus Height Fundus Units Glucose Ketones Leukocytes Nitrite Labor Signs Protein Cervic Dilation Cervic Effacement Cervic Station neg none Type Weight in lbs Pre/Post Dialysis Refused [id number] BP Diastolic BP Location Tested BP Systolic BP Type 71 119 Fetus Heart Rate Present Fetus Movement A Yes Comments Patient states that ia havin g elevated heart rate, headache, and discharge. Think want to proceed with heart moniter. 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, classes, f/u 4 weeks education and precautions Flowsheet Date 05/14/2024 Dowd Score Blood Edema Fundus Height Fundus Units Glucose Ketones Leukocytes Nitrite Labor Signs Protein Cervic Dilation Cervic Effacement Cervic Station Type Weight in lbs Pre/Post Dialysis Refused BP Diastolic BP Location Tested BP Systolic BP Type Fetus Heart Rate Present Fetus Movement Comments Flowsheet Date 05/14/2024 Dowd Score Blood Edema Fundus Height Fundus Units Glucose Ketones Leukocytes Nitrite Labor Signs Protein Cervic Dilation Cervic Effacement Cervic Station neg none Type Weight in lbs Pre/Post Dialysis Refused [id number] BP Diastolic BP Location Tested BP Systolic BP Type 83 116 Fetus Heart Rate Present Fetus Movement A Yes Comments Patient is having heartburn, side pain and discharge. reviewed us, anatomy complete,cardiac us reviewed, plan cardiology follow up consider beta dc, +FM, plan GCT at next visit Flowsheet Date 06/10/2024 Dowd Score Blood Edema Fundus Height Fundus Units Glucose Ketones Leukocytes Nitrite Labor Signs Protein Cervic Dilation Cervic Effacement Cervic Station Type Weight in lbs Pre/Post Dialysis Refused BP Diastolic BP Location Tested BP Systolic BP Type Fetus Heart Rate Present Fetus Movement Comments Flowsheet Date 06/10/2024 Dowd Score Blood Edema Fundus Height Fundus Units Glucose Ketones Leukocytes Nitrite Labor Signs Protein Cervic Dilation Cervic Effacement Cervic Station neg none Type Weight in lbs Pre/Post Dialysis Refused Weight [id number] BP Diastolic BP Location Tested BP Systolic BP Type 72 117 Fetus Heart Rate Present Fetus Movement A Yes Comments Patient is having vision norma nges and swelling. reviewed precautions and education , pt to monitor, GCT today, reviewed keyla 23 will rpt in 2 weeks efw 86% Flowsheet Date 06/24/2024 Dowd Score Blood Edema Fundus Height Fundus Units Glucose Ketones Leukocytes Nitrite Labor Signs Protein Cervic Dilation Cervic Effacement Cervic Station Type Weight in lbs Pre/Post Dialysis Refused BP Diastolic BP Location Tested BP Systolic BP Type Fetus Heart Rate Present Fetus Movement Comments Flowsheet Date 06/24/2024 Dowd Score Blood Edema Fundus Height Fundus Units Glucose Ketones Leukocytes Nitrite Labor Signs Protein Cervic Dilation Cervic Effacement Cervic Station neg none Type Weight in lbs Pre/Post Dialysis Refused [id number] BP Diastolic BP Location Tested BP Systolic BP Type 72 105 Fetus Heart Rate Present Fetus Movement A Yes Comments polyhydramnios, keyla 25 cm, w ill f/u in 2 weeks, passed GCT, +FM, vertex, reviewed sxs, education and precautions, PIH precautions f/u 2 weeks, call for preadmit Flowsheet Date 07/08/2024 Dowd Score Blood Edema Fundus Height Fundus Units Glucose Ketones Leukocytes Nitrite Labor Signs Protein Cervic Dilation Cervic Effacement Cervic Station Type Weight in lbs Pre/Post Dialysis Refused BP Diastolic BP Location Tested BP Systolic BP Type Fetus Heart Rate Present Fetus Movement Comments Flowsheet Date 07/08/2024 Dowd Score Blood Edema Fundus Height Fundus Units Glucose Ketones Leukocytes Nitrite Labor Signs Protein Cervic Dilation Cervic Effacement Cervic Station neg trace Type Weight in lbs Pre/Post Dialysis Refused [id number] BP Diastolic BP Location Tested BP Systolic BP Type 76 129 Fetus Heart Rate Present Fetus Movement A Yes Comments Patient states that is havin g vision changes, discharge, swelling and has vein in leg that is painful. reviewed precautions and education. polyhydramnios, plan weekly testing, called for preadmit, discussed with dr. barajas, stat us for bilateral legs, pt considering 39 week iol f/u one week, bpp 09/26 nst to follow Menstrual History Last Menstrual Date Menses Monthly On Bcp Conception Prior Menses Frequency Hcg Plus Date Menarche Onset Age 1011/20/2022 Delivery Information Delivery Date Delivery Type Labor Anesthesia Weeks Gestation Incision Type Labor Labor Length Hrs Delivered By Post Complications Tubal Sterilization Discharge Date Comments Discharge Information Feeding Method Contraceptive Method Maternal HG B and HCT Levels
--- OUTSIDE RECORDS SUMMARY | 2024-07-08 12:58 | XMS_ITS | Continuity of Care Document ---
Author Organization [facility] Address [address] [place] [address] Care Team Providers Care Financial Sales Manager Name Role Phone MULTICARE SPECIALIST Primary Care Provider Assessment Encounter Date Assessment Date Assessment LastModified by Organization Details LastModified Time 07/08/2024 07/08/2024 Patient is __33_weeks . Discussed plan. Not available 07/08/2024 12:56:34 Plan of Treatment Reminders Order Date Submit Date Provider Last Modified By Organization Details Last Modified Time Details Appointments U/S OB GROWTH 2024 11:00A M ULTRASOUND Not available Not available Not available OB ROUTINE 2024 11:30A M Cyndee Hill CNM Not available Not available Not available Lab None recorde d. Referral None recorde d. Procedures None recorde d. Surgeries None recorde d. Imaging None recorde d. Medication Orders None recorde d. Patient TargetsNo targets recorded. Patient InstructionsNo instructions recorded. Reason for Referral None Reported. Results Created Date Observation Date Name Description Value Unit Range Abnormal Flag Note LastModifiedBy Organization Detail LastModifiedTime 02/21/1902/22/2024 US, obste tric, nucha l trans lucen cy No observ ation record ed. [facility] [address], [place], [address], 02/22/2024 17:07:29 02/21/19 25 02/22/2024 US, obste tric, nucha l trans lucen cy No observ ation record ed. [email or web address] [address], [place], [address], 02/23/2024 13:00:14 04/16/19 25 04/16/2024 US, obste tric, 2nd or 3rd trime ster No observ ation record ed. [email or web address] [facility] [address], [place], [address], 04/16/2024 18:02:55 04/16/19 25 04/16/2024 US, obste tric, follo w-up No observ ation record ed. [address], [place], [address], 04/21/2024 22:25:35 05/05/19 25 04/22/2024 cathy r monit or No observ ation record ed. [email or web address] [place] [id number], [place], [address], 05/06/2024 16:52:47 05/15/19 25 05/14/2024 US, obste tric, follo w-up No observ ation record ed. [email or web address] [facility] [address], [place], [address], 05/14/2024 18:22:56 05/15/19 25 05/14/2024 US, obste tric, follo w-up No observ ation record ed. [email or web address] [address], [place], [address], 05/29/2024 13:24:47 06/11/19 25 06/10/2024 US, obste tric, follo w-up No observ ation record ed. [email or web address] [address], [place], [address], 06/16/2024 15:41:53 06/11/19 25 06/10/2024 US, obste tric, follo w-up No observ ation record ed. [email or web address] [facility] [address], [place], [address], 06/10/2024 14:45:01 06/25/19 25 06/24/2024 US, obste tric, limit ed No observ ation record ed. [email or web address] [facility] [address], [place], [address], 06/24/2024 13:34:37 06/25/19 25 06/24/2024 US, obste tric, follo w-up No observ ation record ed. [email or web address] [address], [place], [address], 07/01/2024 13:40:58 07/09/19 25 07/08/2024 US, obste tric, follo w-up No observ ation record ed. [facility] [address], [place], [address], 07/08/2024 13:55:54 07/09/19 25 07/08/2024 US, obste tric, follo w-up No observ ation record ed. [email or web address] [address], [place], [address], 07/08/2024 12:40:39 Result Notes None recorded. Problems Name Problem SNOMED Code Status Onset Date Resolution Date Notes Provider Name and Address Organization Details Recorded Time Uses contrace ptive implant 102187748 Completed 201909/16/2020 due out 05/2022 Roberta hinds [facility] 12:20:31 Urinary tract infectio us disease 17298331 Completed 201609/16/2020 Urinary tract infectio n, site not specifie d;Practi ce ID: 0001 Roberta hinds [facility] 12:20:28 Evaluati on finding Completed 201609/16/2020 Hematuri a, unspecif ied;Prac yared ID: 0001 Roberta hinds, [facility] 12:19:42 Procedur e Completed 201609/16/2020 Enctr srvlnc implanta ble subderma l contrace ptive;Pr actice ID: 0001 Roberta Coleman lizet [facility] 12:19:59 Pregnanc y test negative 449746880 Completed 201609/16/2020 Encounte r for pregnanc y test, result negative ;Practic e ID: 0001 Roberta Coleman lizet [facility] 12:19:[address] Concept Completed 201609/16/2020 Encntr for diaper folder exam (general ) (routine ) w/o abn findings ;Practic e ID: 0001 Roberta Coleman [facility], [facility] 12:20:12 Sexually transmit ezekiel infectio us disease 6169747 Completed 201709/16/2020 Unspecif ied sexually transmit ezekiel disease; Practice ID: 0001 Roberta Coleman lizet, [facility] 12:20:05 Acute vaginiti s 17747146 Completed 201709/16/2020 Acute vaginiti s;Practi ce ID: 0001 Roberta Coleman lizet, [facility] 12:19:31 Contrace ptive sheath status 786473570 Completed 201909/16/2020 Encounte r for initial prescrip tion of other contrace ptives;P ractice ID: 0001 Roberta Coleman lizet [facility] 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 1 12:20:[address] Concept Completed 201509/16/2020 Encntr for routine child health exam w/o abnormal findings ;Recorde d Elsewher e: No Locat ion: [facility] S ource: EHR Lap Machine Operator paulo: N Practi ce ID: 0001 Feliz lable Time: 01:30:00 PM Roberta hinds, [facility] 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 12:20:18 Syphilis test finding [id number] Completed 201509/16/2020 Encntr screen for infectio ns w sexl mode of transmis s;Record ed Elsewher e: No Locat ion: [facility] S ource: EHR Lap Machine Operator paulo: N Tristianti ce ID: 0001 Feliz lable Time: 01:30:00 PM Roberta hinds [facility] 12:20:23 Screenin g for malignan t neoplasm of cervix Completed 201309/16/2020 Screenin g for malignan t neoplasm s of the cervix;R ecorded Elsewher e: No Locat ion: [facility] S ource: EHR Lap Machine Operator paulo: N Practi ce ID: 0001 Feliz lable Time: 09:15:00 AM Roberta hinds [facility] 1 12:20:02 Speciali zed medical examinat ion Completed 201409/16/2020 Other specifie d chlamydi al diseases ;Recorde d Elsewher e: No Locat ion: [facility] S ource: EHR Lap Machine Operator paulo: N Practi ce ID: 0001 Feliz lable Time: 01:30:00 PM Roberta hinds, [facility] 12:20:[address] Concept Completed 201909/16/2020 Nexplano n;Record ed Elsewher e: No Locat ion: [facility] S ource: EHR Lap Machine Operator paulo: N Practi ce ID: 0001 Feliz lable Time: 01:00:00 PM Roberta hinds, [facility] 12:20:15 Implanta tion of subcutan eous contrace ptive Completed 201309/16/2020 Insertio n of implanta ble subderma l contrace ptive;Re corded Elsewher e: No Locat ion: [facility] S ource: EHR Lap Machine Operator paulo: N Practi ce ID: 0001 Feliz lable Time: 10:30:00 AM Roberta hinds [facility] 12:19:48 Venereal disease screenin g Completed 201409/16/2020 Screenin g examinat ion for venereal disease; Recorded Elsewher e: No Locat ion: [facility] S ource: EHR Lap Machine Operator paulo: N Practi ce ID: 0001 Feliz lable Time: 01:30:00 PM Roberta hinds [facility] 12:20:33 Infectio n screenin g Completed 201509/16/2020 Encounte r for screenin g for oth infec/pa rastc diseases ;Recorde d Elsewher e: No Locat ion: [facility] S ource: EHR Lap Machine Operator paulo: N Practi ce ID: 0001 Feliz lable Time: 01:30:00 PM Roberta Coleman lizet, [facility] 12:19:44 Leukorrh ea 102723330 Completed 201409/16/2020 Leukorrh ea, not specifie d as infectiv e;Record ed Elsewher e: No Locat ion: [facility] S ource: EHR Lap Machine Operator paulo: N Practi ce ID: 0001 Feliz lable Time: 04:00:00 PM Roberta Coleman [facility], [facility] 12:19:51 Dysuria 78475632 Completed 201409/16/2020 Dysuria; Recorded Elsewher e: No Locat ion: [facility] S ource: EHR Lap Machine Operator paulo: N Practi ce ID: 0001 Feliz lable Time: 04:00:00 PM Roberta hinds, [facility] 12:19:39 Microsco pic hematuri a 924214578 Completed 201409/16/2020 MICROSCO PIC HEMATURI A;Practi ce ID: 0001 Roberta Coleman lizet, [facility] 12:19:53 Adult health examinat ion Completed 201409/16/2020 Routine general medical examinat ion at a health care facility ;Practic e ID: 0001 Roberta Coleman lizet, [facility] 12:19:33 Pregnanc y 98679467 Active 2024 Roberta Coleman lizet, [facility] 5 14:14:04 Palpitat ions 38424011 Active 72hr Holter monitor - order faxed 04/16 Ted outpatie nt cardiolo gy Arlen hinds, [facility] 5 15:55:52 Palpitat ions 58469911 Active 72hr Holter monitor - order faxed 04/16 Ted outpatie nt cardiolo gy Arlen Liu hinds, [facility] 15:55:51 Polyhydr amnios 68888612 Active 2024 Cyndee Hill CNM [address], [place], [address], [facility] 09:13:30 Problem Notes None recorded. Procedures Surgical History Date Name Laterality Status Provider Name and Address Organization Details Recorded Time 07/31/19 24 Nexplanon Removal completed Estela Varma [facility]- [address], [place], [address], [facility] 07/31/2023 14:52:59 07/10/19 24 Date of Last Pap Smear completed Roberta Coleman [facility] 07/10/2023 14:11:06 04/20/19 23 Control Implant Insertion completed Cyndee Hill CNM [address], [place], [address], [facility] 04/19/2022 15:16:57 04/20/19 23 Nexplanon Removal completed Cyndee Hill CNM [address], [place], [address], [facility] 04/19/2022 15:19:55 10/27/19 22 Colposcopy completed Cyndee Hill CNM [address], [place], [address], [facility] 10/26/2021 11:51:08 10/27/19 22 Colposcopy completed Roberta Coleman [facility] 10/26/2021 11:06:19 10/27/19 22 Colposcopy completed Roberta Coleman [facility] 10/26/2021 11:06:12 02/19/19 20 extraction of wisdom tooth completed Roberta Coleman [facility] 09/21/2021 12:37:26 Imaging Results None recorded. Procedure Notes None recorded. Medical Equipment None Reported. Allergies Allergen ID Allergen Name Allergen Category Reaction Reaction Severity Criticality Documentation Date Start Date Code Code System Note Provider Name and Address Organization Details Recorded Time 788 nitrofura ntoin medicatio n Not available Not available Not available 07/18/2019 7454 RxNorm Chio hinds, [facility] 0 14:41:01 Medications Name Sig Start Date Stop Date Status Note LastModified by Organization Details LastModified Time acetamino phen 325 mg tablet take 1 tablet by oral route every 4 hours as needed 02/14 completed Prescrib ed Elsewher e: Yes Loca tion: [facility] odify By: annette crawford DateTime : 03/13/19 [...] Prescrib ed Elsewher e: No Locat ion: [facility] odify By: jorge Landeros ter DateTime : 07/12/19 18 01:45:00 PM Not Available Not Available Not Available Macrobid 100 mg capsule take 1 capsule by oral route 2 times every day for 7 days with food 11/22 completed Prescrib ed Elsewher e: No Locat ion: [facility] odify By: erick buenrostro DateTime : 11/17/19 [...] route every day 04/11 completed Prescrib ed Balta e: No Locat ion: [facility] everardo [facility] M odify By: [email or web address] trick En counter [...] Address Organization Details Last Updated DateTime 07/08/2024 86527.47 4 g 32 kg/m2 168.28 cm 129 mm[Hg] 76 mm[Hg] Roberta Coleman [facility] 5 12:31:04 Social History Question Answer Notes LastModified by Organizat ion Details LastModified Time Tobacco Smoking Status Former Smoker Liz hinds [facility] 10/26/2021 10:57:14 Do You Have An Advance Directive? No [email or web address] Information not available 09/17/2020 If You Are , What Was Your Level Of Alcohol Consumption Prior To ? Occasional [email or web address] Information not available 02/22/2024 How Many Years Have You Consumed Alcohol? 4 [email or web address] Information not available 09/21/2021 Are You Blind Or Do You Have Difficulty Seeing? No Information not available 09/17/2020 What Is Your Level Of Caffeine Consumption? Occasional [email or web address] Information not available 09/21/2021 How Much Tobacco Do You Chew? None [email or web address] Information not available 09/17/2020 In The 14 Days Before Symptom Onset, Have You Had Close Contact With A Laboratory-confir med COVID-19 While That Case Was Ill? No [email or web address] Information not available 09/17/2020 In The 14 Days Before Symptom Onset, Have You Had Close Contact With A Person Who Is Under Investigation For COVID-19 While That Person Was Ill? No [email or web address] Information not available 09/17/2020 Have You Been To An Area Known To Be High Risk For COVID-19? No [email or web address] Information not available 09/17/2020 Are You Deaf Or Do You Have Serious Difficulty Hearing? No [email or web address] Information not available 09/17/2020 What Type Of Diet Are You Following? REGULAR [email or web address] Information not available 09/17/2020 What Is The Highest Grade Or Level Of School You Have Completed Or The Highest Degree You Have Received? [id number] [email or web address] Information not available 09/17/2020 Are There Any Guns Present In Your Home? No [email or web address] Information not available 09/17/2020 What Was The Date Of Your Most Recent Tobacco Screening? 07/08/2024 [email or web address] Information not available 07/08/2024 Have You Ever Been Counseled For Unhealthy Alcohol Use? No [email or web address] Information not available 10/26/2021 Do You Use Protection During Sex? Usually [email or web address] Information not available 09/17/2020 Do You Use Your Seat Belt Or Car Seat Routinely? Yes [email or web address] Information not available 09/17/2020 Do You Have Smoke And Carbon Monoxide Detectors In Your Home? Yes [email or web address] Information not available 09/17/2020 How Much Tobacco Do You Smoke? No [email or web address] Information not available 08/29/2019 Do You Use Sunscreen Routinely? Yes [email or web address] Information not available 09/17/2020 Has Tobacco Cessation Counseling Been Provided? No [email or web address] Information not available 10/26/2021 Have You Used IV Drugs? No [email or web address] Information not available 09/17/2020 Do You Have Difficulty Walking Or Climbing Stairs? No [email or web address] Information not available 10/26/2021 Sex: Female Functional Status Question Answer Note LastModified by Organizat ion Details LastModified Time Do you use any illicit or recreational drugs? No [email or web address] Information not available 09/17/2020 Do you or have you ever used any other forms of tobacco or nicotine? No [email or web address] Information not available 10/26/2021 What is your level of alcohol consumption? None [email or web address] Information not available 02/22/2024 Are you able to walk? YESWOREST Information not available 09/17/2020 Are you able to care for yourself? 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 No [email or web address] Information not available 10/26/2021 What is your exercise level? Occasional [email or web address] Information not available 08/29/2019 Mental Status Question Answer Note LastModified by Organization D etails LastModified Time Do you feel stressed (tense, restless, nervous, or anxious, or unable to sleep at night)? [id number] [email or web address] Information not available 09/17/2020 Family History Relationship Description Onset Age of this Age Resolved Age Notes LastModified by Organization Details LastModified Time Mother Disorder of thyroid gland [email or web address] Not available 08/28 10:45:06 Brother Diabetes mellitus [email or web address] Not available 08/28 10:45:13 Maternal Grandmother Heart disease has pacema ker [email or web address] Not available 08/29/2019 10:45:25 Notes:No family history [...] SNOMED-CT Code Diagnosis ICD10 Code Diagnosis Note [id number] Marcellus Barajas MD [facility] [address],[place] [address] 06/10/2024 09:12:28 06/10/2024 10:09:31 Observational assessment 434396034 Z03.74 Z3A.29 [id number] [facility] [address],[place] [address] 06/10/2024 09:13:03 06/10/2024 12:02:42 Gestation period, 29 weeks 69838638 Z3A.29 [id number] Marcellus Barajas MD [facility] [address],[place] [address] 06/24/2024 11:18:50 06/24/2024 12:11:00 Polyhydramnios 36294331 O40.3XX0 Z3A.31 [id number] [facility] [address],[place] [address] 06/24/2024 11:19:11 06/25/2024 10:44:19 Gestation period, 31 weeks 80805881 Z3A.31 [id number] Marcellus Baarjas MD [facility] [address] [address] 07/08/2024 11:56:43 07/08/2024 12:58:52 Polyhydramnios 67596463 O40.3XX0 Z3A.33 [id number] Cyndee Hill CNM [facility] [address] [address] 07/08/2024 11:57:06 07/08/2024 12:58:44 Gestation period, 33 weeks 09288217 Z3A.33 Health Concerns Section Related Observation LastModified by Organization Detai ls LastModified Time None Recorded Concern Status LastModified by Organization Details LastModified Time None Recorded Payers Encounter Date Sequence Insurance Name Policy Number Policy Mccarthy Covered Member ID Mccarthy Member ID Guarantor Name 07/08/2024 1 [place] [id number] Uma Hernandez [id number] Uma Hernandez OBGyn Episode Ob Episode Information Episode Created Date Number of Fetuses Patient Bloodtype Patient rh Status Prepregnancy Weight lbs Domestic Partner Domestic Partner Phone Father Name Tape 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 Machine Operator Status 02/21/19 25 1 B Positive 179 OPEN Fetus Data First Name Last Name Admitted to NICU Weight (g) Sex Living Outcome Pediatric Complications Fetus ID Race Codes Race Delivery Type [id number] Problems Problem Notes KEYLA upper limits rpt 5/6 Problem Name Start Date End Date Resolution Snomed Code Not e Polyhydramnios 06/25/2024 19852857 Palpitations 93737645 72hr Ho lter monitor - order faxed 04/16 [place] [facility] [place] Calculation Initial Ishaan Date [...] Weight in lbs Pre/Post Dialysis Refused Weight 179.370911413857 BP Diastolic BP Location Tested BP Systolic BP Type 73 115 Fetus Heart Rate Present Fetus Movement A No Comments discussed increased heart ra te, precautions and education, if persists or worsens can order boilermaker loftsman, pt to monitor, G1, surgical medical hx unremarkable, start routine care, labs today us reviewed wnl Flowsheet Date 03/19/2024 Dowd Score Blood Edema Fundus Height Fundus Units Glucose Ketones Leukocytes Nitrite Labor Signs Protein Cervic Dilation Cervic Effacement Cervic Station trace Type Weight in lbs Pre/Post Dialysis Refused 180.202892887333 BP Diastolic BP Location Tested BP Systolic [...] Type Weight in lbs Pre/Post Dialysis Refused 185.303369777811 BP Diastolic BP Location Tested BP Systolic BP Type 71 119 Fetus Heart Rate Present Fetus Movement A Yes Comments Patient states that doron [place] g elevated heart rate, headache, and discharge. Think want to proceed with heart moniter. 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
--- OUTSIDE RECORDS SUMMARY | 2024-07-08 12:58 | XMS_ITS | Data Portability ---
Author Organization [facility] Address [address] [place] [address] [place] [address] Care Team Providers Care State Assessed Properties Director Name Role Phone MULTICARE SPECIALIST Primary Care Provider Assessment Encounter Date Assessment Date Assessment LastModified by Organization Details LastModified Time 06/24/2024 06/24/2024 Patient is _31__weeks . Discussed plan. [email or web address] Not available 06/24/2024 12:24:43 07/08/2024 07/08/2024 Patient is __33_weeks . Discussed [...] US, obstetr ic, follow- up 2024 025 [email or web address] [address], [address], [place], [address], 07/08/2024 13:58:03 US, obstetr ic, limited 2024 025 [email or web address] [address], [address], [place], [address], 06/25/2024 15:59:48 US, obstetr ic, follow- up 2024 025 [email or web address] Max, [address], [address], [place], [address], 06/10/2024 22:17:18 Medication Orders None recorde d. Patient TargetsNo targets recorded. Patient InstructionsNo instructions recorded. Reason for Referral None Reported. Results Created Date Observation Date Name Description Value Unit Range Abnormal Flag Note LastModifiedBy Organization Detail LastModifiedTime 06/11/1906/10/2024 HEMAT OCRIT (HCT) HCT 34.8 % (based on docume nted legal sex) 34.0-4 5.0 Not Available [facility] (Lab) [address], [place], [address], 06/11/2024 10:33:19 06/11/19 25 06/10/2024 HEMOG LOBIN (HGB) HGB 11.4 g/dL (based on docume nted legal sex) 11.6-1 5.4 low Not Available [facility] (Lab) [address], [place], [address], 06/11/2024 10:33:20 06/11/19 25 06/10/2024 GTT - GESTA MARISA L SCREE N, ACOG OB glucose, 1 hour screen 114 mg/dL 70-135 Not Available [facility] (Lab) [address], [place], [address], 06/11/2024 10:33:20 06/11/19 25 06/10/2024 HIV 1/2 ANTIG EN/AN TIBOD Y, REFLE X CONFI RMATI ON HIV antigen/anti body Nonrea ctive nonrea ctive HIV-1 antig en and HIV-1 /HIV- 2 antib odies were not detec ezekiel. No labor atory evide nce of HIV infec tion. Not Available [facility] (Lab) [address], [place], [address], 06/11/2024 10:33:21 06/11/19 25 06/10/2024 RPR SCREE N, REFLE X TITER /CONF IRMAT ION RPR qualitative Nonrea ctive nonrea ctive Not Available [facility] (Lab) [address] [facility], [place], [address], 06/11/2024 10:33:22 05/15/19 25 05/14/2024 US, obste tric, follo w-up No observ ation record ed. [facility] [address], [place], [address], 05/14/2024 18:22:56 05/15/19 25 05/14/2024 US, obste tric, follo w-up No observ ation record ed. [email or web address], [place], [address], 05/29/2024 13:24:47 06/11/19 25 06/10/2024 US, obste tric, follo w-up No observ ation record ed. [address], [place], [address], 06/16/2024 15:41:53 06/11/19 25 06/10/2024 US, obste tric, follo w-up No observ ation record ed. [facility] [address], [place], [address], 06/10/2024 14:45:01 06/25/19 25 06/24/2024 US, obste tric, limit ed No observ ation record ed. [facility] [address], [place], [address], 06/24/2024 13:34:37 06/25/19 25 06/24/2024 US, obste tric, follo w-up No observ ation record ed. [address], [place], [address], 07/01/2024 13:40:58 07/09/19 25 07/08/2024 US, obste tric, follo w-up No observ ation record ed. [facility] [address], [place], [address], 07/08/2024 13:55:54 07/09/19 25 07/08/2024 US, obste tric, follo w-up No observ ation record ed. [email or web address], [place], [address], 07/08/2024 12:40:39 Result Notes None recorded. Problems Name Problem SNOMED Code Status Onset Date Resolution Date Notes Provider Name and Address Organization Details Recorded Time Uses contrace ptive implant 345580413 Completed 201909/16/2020 due out 05/2022 Roberta hinds, [facility] 12:20:31 Urinary tract infectio us disease 28595173 Completed 201609/16/2020 Urinary tract infectio n, site not specifie d;Practi ce ID: 0001 Roberta Coleman [facility], [facility] 12:20:28 Evaluati on finding Completed 201609/16/2020 Hematuri a, unspecif ied;Prac yared ID: 0001 Roberta hinds, [facility] 12:19:42 Procedur e Completed 201609/16/2020 Enctr srvlnc implanta ble subderma l contrace ptive;Pr actice ID: 0001 Roberta hinds, [facility] 12:19:59 Pregnanc y test negative 191970379 Completed 201609/16/2020 Encounte r for pregnanc y test, result negative ;Practic e ID: 0001 Roberta Coleman lizet, [facility] 12:19:[address] Concept Completed 201609/16/2020 Encntr for cloth bale header exam (general ) (routine ) w/o abn findings ;Practic e ID: 0001 Roberta hinds [facility] 12:20:12 Sexually transmit ezekiel infectio us disease 9316655 Completed 201709/16/2020 Unspecif ied sexually transmit ezekiel disease; Practice ID: 0001 Roberta Coleman lizet, [facility] 12:20:05 Acute vaginiti s 97460300 Completed 201709/16/2020 Acute vaginiti s;Practi ce ID: 0001 Roberta Coleman [facility], [facility] 12:19:31 Contrace ptive sheath status 513572880 Completed 201909/16/2020 Encounte r for initial prescrip tion of other contrace ptives;P ractice ID: 0001 Roberta Coleman [facility], [facility] 12:19:[address] Concept Completed 201709/16/2020 Encntr for general adult medical exam w/o abnormal findings ;Recorde d Elsewher e: No Locat ion: Yessi mcgee [facility] S ource: EHR Sandblaster Glass paulo: N Practi ce ID: 0001 Feliz lable Time: 01:30:00 PM Roberta Coleman lizet [facility] 12:20:[address] Concept Completed 201509/16/2020 Encntr for routine child health exam w/o abnormal findings ;Recorde d Elsewher e: No Locat ion: Yessi mcgee [facility] S ource: EHR Sandblaster Glass paulo: N Practi ce ID: 0001 Feliz lable Time: 01:30:00 PM Roberta Coleman lizet [facility] 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 1 12:20:18 Syphilis test finding 260400529 Completed 201509/16/2020 Encntr screen for infectio ns w sexl mode of transmis s;Record ed Elsewher e: No Locat ion: [facility] S ource: EHR Sandblaster Glass paulo: N Practi ce ID: 0001 Feliz lable Time: 01:30:00 PM Roberta Coleman [facility], [facility] 1 12:20:23 Screenin g for malignan t neoplasm of cervix Completed 201309/16/2020 Screenin g for malignan t neoplasm s of the cervix;R ecorded Elsewher e: No Locat ion: [facility] S ource: EHR Sandblaster Glass pualo: N Practi ce ID: 0001 Feliz lable Time: 09:15:00 AM Roberta Coleman [facility], [facility] 1 12:20:02 Speciali zed medical examinat ion Completed 201409/16/2020 Other specifie d chlamydi al diseases ;Recorde d Elsewher e: No Locat ion: [facility] S ource: EHR Sandblaster Glass paulo: N Practi ce ID: 0001 Feliz lable Time: 01:30:00 PM Roberta Coleman [facility], [facility] [address] 12:20:[address] Concept Completed 201909/16/2020 Nexplano n;Record ed Elsewher e: No Locat ion: [facility] S ource: EHR Sandblaster Glass paulo: N Practi ce ID: 0001 Feliz lable Time: 01:00:00 PM Roberta hinds, [facility] 12:20:15 Implanta tion of subcutan eous contrace ptive Completed 201309/16/2020 Insertio n of implanta ble subderma l contrace ptive;Re corded Elsewher e: No [facility]: EHR Sandblaster Glass paulo: Adam Person ce ID: 0001 Feliz lable Time: 10:30:00 AM Roberta Coleman lizet, [facility] 12:19:48 Venereal disease screenin g Completed 201409/16/2020 Screenin g examinat ion for venereal disease; Recorded Elsewher e: No Locat ion: [facility] S ource: EHR Sandblaster Glass paulo: Adam Person ce ID: 0001 Feliz lable Time: 01:30:00 PM Roberta hinds, [facility] 12:20:33 Infectio n screenin g Completed 201509/16/2020 Encounte r for screenin g for oth infec/pa rastc diseases ;Recorde d Elsewher e: No Locat ion: [facility] S ource: EHR Sandblaster Glass paulo: Adam Person ce ID: 0001 Feliz lable Time: 01:30:00 PM Roberta Coleman lizet [facility] 12:19:44 Leukorrh ea 140357678 Completed 201409/16/2020 Leukorrh ea, not specifie d as infectiv e;Record ed Elsewher e: No Locat ion: [facility] S ource: EHR Sandblaster Glass paulo: Adam Person ce ID: 0001 Feliz lable Time: 04:00:00 PM Roberta Coleman lizet [facility] 12:19:51 Dysuria 56558024 Completed 201409/16/2020 Dysuria; Recorded Elsewher e: No [facility]: EHR Sandblaster Glass paulo: N Practi ce ID: 0001 Feliz lable Time: 04:00:00 PM Roberta Coleman lizet [facility] 12:19:39 Microsco pic hematuri a 905908997 Completed 201409/16/2020 MICROSCO PIC HEMATURI A;Practi ce ID: 0001 Roberta hinds, [facility] 12:19:53 Adult health examinat ion Completed 201409/16/2020 Routine general medical examinat ion at a health care facility ;Practic e ID: 0001 Roberta hinds, [facility] 12:19:33 Pregnanc y 58821188 Active 2024 Roberta Coleman lizet [facility] 5 14:14:04 Palpitat ions 60693093 Active 72hr Holter monitor - order faxed 04/16 [place] [facility] Arlen Hatfield lizet, [facility] 5 15:55:52 Palpitat ions 55843811 Active 72hr Holter monitor - order faxed 04/16 [place] [facility] Arlen Hatfield lizet [facility] 5 15:55:51 Polyhydr amnios 53263598 Active 2024 Cyndee Hill CNM [address], [place], [address], [facility] 5 09:13:30 Problem Notes None recorded. Procedures Surgical History Date Name Laterality Status Provider Name and Address Organization Details Recorded Time 07/31/19 24 Nexplanon Removal completed KOBE Duarte- [address], [place], [address], [facility] 07/31/2023 14:52:59 07/10/19 24 Date of Last Pap Smear completed Roberta Coleman [facility] 07/10/2023 14:11:06 04/20/19 23 Control Implant Insertion completed Cyndee Hill CNM [address], [place], [address], [facility] 04/19/2022 15:16:57 04/20/19 23 Nexplanon Removal completed Cyndee Hill CNM [address], [place], [address], [facility] 04/19/2022 15:19:55 10/27/19 22 Colposcopy completed Cyndee Hill CNM [address], [place], [address], [facility] 10/26/2021 11:51:08 10/27/19 22 Colposcopy completed Roberta Coleman [facility] 10/26/2021 11:06:19 10/27/19 22 Colposcopy completed Robertasupriya Coleman [facility] 10/26/2021 11:06:12 02/19/19 20 extraction of wisdom tooth completed Robertasupriya Coleman [facility] 09/21/2021 12:37:26 Imaging Results Imaging Date Name Status LastModified by Organiz ation Details LastModified Time 05/14/2024 US, obstetric, follow-up completed [email or web address] [address], [place], [address], 05/14/2024 18:22:56 05/14/2024 US, obstetric, follow-up completed [email or web address] [address], [place], [address], 05/29/2024 13:24:47 06/10/2024 US, obstetric, follow-up completed [email or web address] [address], [place], [address], 06/16/2024 15:41:53 06/10/2024 US, obstetric, follow-up completed [address], [place], [address], 06/10/2024 14:45:01 06/24/2024 US, obstetric, limited completed [email or web address] [place] [address] [address], [place], [address], 06/24/2024 13:34:37 06/24/2024 US, obstetric, follow-up completed [email or web address] [address], [place], [address], 07/01/2024 13:40:58 07/08/2024 US, obstetric, follow-up completed [facility] [address], [place], [address], 07/08/2024 13:55:54 07/08/2024 US, obstetric, follow-up active [email or web address], [place], [address], 07/08/2024 12:40:39 Procedure Notes None recorded. Medical Equipment None Reported. Allergies Allergen ID Allergen Name Allergen Category Reaction Reaction Severity Criticality Documentation Date Start Date Code Code System Note Provider Name and Address Organization Details Recorded Time 788 nitrofura ntoin medicatio n Not available Not available Not available 07/18/2019 7454 RxNorm Chio hinds [place] - [facility] 0 14:41:01 Medications Name Sig Start Date Stop Date Status Note LastModified by Organization Details LastModified Time acetamino phen 325 mg tablet take 1 tablet by oral route every 4 hours as needed 02/14 completed Prescrib ed Elsewher e: Yes Loca tion: [facility] odify By: [email or web address] Encounte r DateTime : 03/13/19 13 02:15:00 PM Not [...] Prescrib ed Elsewher e: No Locat ion: [facility] odify By: jorge buenrostro DateTime : 07/12/19 18 01:45:00 PM Not Available Not Available Not Available Macrobid 100 mg capsule take 1 capsule by oral route 2 times every day for 7 days with food 11/22 completed Prescrib ed Elsewher e: No Locat ion: [facility] odify By: erick Landeros ter DateTime : 11/17/19 15 04:00:00 PM Not [...] Prescrib ed Elsewher e: No Locat ion: [facility] odify By: [email or web address] trick En counter DateTime [...] Available Not Available Vitals Date Recorded Body height Body mass index (BMI) Body weight Systolic blood pressure Diastolic blood pressure Provider Name and Address Organization Details Last Updated DateTime 06/10/2024 168.28 cm 31.2 kg/m2 96605.51 g 117 mm[Hg] 72 mm[Hg] Roberta [facility] 5 10:40:01 Date Recorded Body weight Body mass index (BMI) Body height Systolic blood pressure Diastolic blood pressure Provider Name and Address Organization Details Last Updated DateTime 06/24/2024 67702.69 689 g 31.6 kg/m2 168.28 cm 105 mm[Hg] 72 mm[Hg] Roberta [facility] 5 12:21:23 Date Recorded Body weight Body mass index (BMI) Body height Systolic blood pressure Diastolic blood pressure Provider Name and Address Organization Details Last Updated DateTime 07/08/2024 30430.47 4 g 32 kg/m2 168.28 cm 129 mm[Hg] 76 mm[Hg] Roberta [facility] 5 12:31:04 Social History Question Answer Notes LastModified by Organizat ion Details LastModified Time Tobacco Smoking Status Former Smoker Liz Rangel [facility] 10/26/2021 10:57:14 Do You Have An Advance Directive? No [email or web address] Information not available 09/17/2020 If You Are , What Was Your Level Of Alcohol Consumption Prior To ? Occasional [email or web address] Information not available 02/22/2024 How Many Years Have You Consumed Alcohol? 4 [email or web address] Information not available 09/21/2021 Are You Blind Or Do You Have Difficulty Seeing? No Information not available 09/17/2020 What Is Your Level Of Caffeine Consumption? Occasional [email or web address] Information not available 09/21/2021 How Much Tobacco Do You Chew? None [email or web address] Information not available 09/17/2020 In The 14 Days Before Symptom Onset, Have You Had Close Contact With A Laboratory-confir med COVID-19 While That Case Was Ill? No Information not available 09/17/2020 In The 14 Days Before Symptom Onset, Have You Had Close Contact With A Person Who Is Under Investigation For COVID-19 While That Person Was Ill? No Information not available 09/17/2020 Have You Been To An Area Known To Be High Risk For COVID-19? No [email or web address] Information not available 09/17/2020 Are You Deaf Or Do You Have Serious Difficulty Hearing? No [email or web address] Information not available 09/17/2020 What Type Of Diet Are You Following? REGULAR [email or web address] Information not available 09/17/2020 What Is The Highest Grade Or Level Of School You Have Completed Or The Highest Degree You Have Received? [id number] Information not available 09/17/2020 Are There Any Guns Present In Your Home? No [email or web address] Information not available 09/17/2020 What Was The Date Of Your Most Recent Tobacco Screening? 07/08/2024 [email or web address] Information not available 07/08/2024 Have You Ever Been Counseled For Unhealthy Alcohol Use? No [email or web address] Information not available 10/26/2021 Do You Use Protection During Sex? Usually [email or web address] Information not available 09/17/2020 Do You Use Your Seat Belt Or Car Seat Routinely? Yes [email or web address] Information not available 09/17/2020 Do You Have Smoke And Carbon Monoxide Detectors In Your Home? Yes [email or web address] Information not available 09/17/2020 How Much Tobacco Do You Smoke? No [email or web address] Information not available 08/29/2019 Do You Use Sunscreen Routinely? Yes [email or web address] Information not available 09/17/2020 Has Tobacco Cessation Counseling Been Provided? No [email or web address] Information not available 10/26/2021 Have You Used IV Drugs? No [email or web address] Information not available 09/17/2020 Do You Have Difficulty Walking Or Climbing Stairs? No [email or web address] Information not available 10/26/2021 Sex: Female Functional Status Question Answer Note LastModified by Organizat ion Details LastModified Time Do you use any illicit or recreational drugs? No Information not available 09/17/2020 Do you or have you ever used any other forms of tobacco or nicotine? No [email or web address] Information not available 10/26/2021 What is your level of alcohol consumption? None [email or web address] Information not available 02/22/2024 Are you able to walk? YESWOREST [email or web address] Information not available 09/17/2020 Are you able to care for yourself? 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 No [email or web address] Information not available 10/26/2021 What is your exercise level? Occasional [email or web address] Information not available 08/29/2019 Mental Status Question Answer Note LastModified by Organization D etails LastModified Time Do you feel stressed (tense, restless, nervous, or anxious, or unable to sleep at night)? [id number] [email or web address] Information not available 09/17/2020 Family History Relationship Description Onset Age of this Age Resolved Age Notes LastModified by Organization Details LastModified Time Mother Disorder of thyroid gland [email or web address] Not available 08/28 10:45:06 Brother Diabetes mellitus [email or web address] Not available 08/28 10:45:13 Maternal Grandmother Heart disease has pacema ker [email or web address] Not available 08/29/2019 10:45:25 Notes:No family history of C ancer, cervical Medical History Condition Response Allergies (Food, seasonal, environmental ) N Other N Blood Transfusion N Drug/Latex Allergies/Reactions Y Breast Cancer N Dermatologic Disorders N Lung Disease N [...] SNOMED-CT Code Diagnosis ICD10 Code Diagnosis Note [id number] Estela Varma [facility] [address] [address] 07/18/2019 14:50:26 08/01/2019 15:45:55 Urine test negative 277770544 Z32.02 Urinary tr act infectious disease 95070633 N39.0 Urine sent +WBC Vaginitis 29446447 N76.0 Exam is suspect for BV. Treated for presumptiv e BV solosec. Counseled on medication R/B's, Most common side effects, & use. All questions were answered to patient satisfacti on. Coupon given. Time spent in visit is a total of 15 mins with at least 50% of visit consisting of counseling and review of plan of care. [id number] [facility] [address] [address] 08/29/2019 10:25:30 08/29/2019 11:12:45 Gynecologic examination 70770547 Z01.419 declines blood work [id number] [facility] [address] [address] 04/19/2022 13:43:32 04/19/2022 16:00:24 Screening procedure 86943955 Z13.9 Implantati on of subcutaneous contraceptive 791335638 Z30.9 Postoperative care 31710 9007 Z48.89 Removal of subcutaneous contraceptive 706404114 Z30.46 [id number] Kaylyn Fishman MD Max [address],[place] [address] 01/14/2020 14:48:31 01/14/2020 15:52:55 Low back pain 204509008 M54.5 Venereal d isease screening 392146523 Z11.3 [id number] Cyndee Hill [facility] [address],[place] [address] 09/17/2020 09:30:34 09/17/2020 10:42:36 Gynecologic examination 34041756 Z01.419 declines blood work [id number] Cyndee Hill [facility] [address],[place] [address] 09/21/2021 11:58:02 09/21/2021 13:17:13 Gynecologic examination 96471131 Z01.419 Z11.3 Z11.8 Vaginitis 03855727 N76.0 [id number] Cyndee Hill [facility] [address],[place] [address] 10/26/2021 10:55:01 10/26/2021 12:09:44 Screening procedure 77204150 Z13.9 Atypical s quamous cells of undetermined significance on cervical Papanicolaou smear 274425185 R87.610 cannot r/o hsil [id number] [facility]ela [facility] [address],[place] [address] 10/03/2022 12:39:48 10/03/2022 13:22:39 Gynecologic examination 88058545 Z01.419 Take Calcium with Vitamin D 1200mg daily if not receiving in daily diet. It is strongly advised to have an annual flu shot and up can obtain at most pharmacies . If you have not had a TDap shot in the last 10 years you should obtain one as well. Discussed with patient & provided with informatio n regarding Gardisil vaccine to prevent the 4 strains for HPV that cause cervical cancer if under age 26. Encourage safe sexual practices, to use condoms and limit partners if not already in a monogamous relationsh ip. Do monthly self breast exams. Have mammogram yearly or every other year depending on family history. BRCA testing is now available for patients with strong genetic history of female cancer. If interested contact the office. Engage in daily exercise of low impact aerobic exercise 45-60 minutes 4-5 times weekly. Avoid tobacco and illicit drugs as well as using moderation with alcohol intake less than 1-2 8 oz beverages daily. This lifestyle behavior pattern will lead to less health conditions and longer life span. If BMI greater than 25 weight watchers or dietary consult advised. Patient received above instructio ns, and questions have been answered. If you have any questions please call or respond to this email. Patient was made aware of the patient portal and may obtain a paper copy of today's plan if desired. Pap sentSTD Screen declinedGe netic Screen discussedC olon Screen naDexa Screen naRoutine Labs PCP [id number] Cyndee Hill [facility] [address],[place] [address] 04/26/2022 13:53:58 04/26/2022 14:54:42 All medication checked 154300103 Z76.89 precaution s reviewed f/u wwe [id number] Estela Varma [facility] [address],[place] [address] 06/08/2022 17:00:54 06/10/2022 14:14:08 Tampon retained in vagina [id number] Z18.89 Today we did NOT find a retained tampon on exam.Exam was WNLShe is grateful and has no further questions or issues. Time spent in visit is a total of 10 mins with at least 50% of visit consisting of counseling and review of plan of care. [id number] Estela Varma [facility] [address],[place] [address] 07/31/2023 14:16:04 07/31/2023 15:03:02 Removal of subcutaneous contraceptive [id number] Z30.46 Removal site was cleansed with betadine and 3cc of lidocaine used for anesthesia . Device was removed in normal fashion without difficulty . Steri stips and pressure bandage placed. [id number] [facility] [address],[place] [address] 07/10/2023 13:44:32 07/10/2023 17:59:41 Gynecologic examination 78564705 Z01.419 Take Calcium with Vitamin D 1200mg daily if not receiving in daily diet. It is strongly advised to have an annual flu shot and up can obtain at most pharmacies . If you have not had a TDap shot in the last 10 years you should obtain one as well. Discussed with patient & provided with informatio n regarding Gardisil vaccine to prevent the 4 strains for HPV that cause cervical cancer if under age 26. Encourage safe sexual practices, to use condoms and limit partners if not already in a monogamous relationsh ip. Do monthly self breast exams. Have mammogram yearly or every other year depending on family history. BRCA testing is now available for patients with strong genetic history of female cancer. If interested contact the office. Engage in daily exercise of low impact aerobic exercise 45-60 minutes 4-5 times weekly. Avoid tobacco and illicit drugs as well as using moderation with alcohol intake less than 1-2 8 oz beverages daily. This lifestyle behavior pattern will lead to less health conditions and longer life span. If BMI greater than 25 weight watchers or dietary consult advised. Patient received above instructio ns, and questions have been answered. If you have any questions please call or respond to this email. Patient was made aware of the patient portal and may obtain a paper copy of today's plan if desired. Pap sentSTD Screen sentGeneti c Screen discussedC olon Screen naDexa Screen naRoutine Labs PCP [id number] Marcellus Barajas MD [facility] [address],[place] [address] 01/16/2024 12:14:10 01/16/2024 12:36:34 [id number] Cyndee Hill CNM [facility] [address],[place] [address] 01/16/2024 12:36:16 01/16/2024 14:21:43 Venereal disease screening 667497276 Z11.3 Amenorrhea 92224295 N91. 2 pap up to datereview ed vaccines, education, precaution sdiscussed margareth on us precaution s reviewedf/ u new ob and first lookunsure about nipt will check insurance [id number] MD Loreta Flowers [address],[place] [address] 02/22/2024 13:23:16 02/22/2024 14:09:27 screening 697896403 Z36.82 Z3A.13 [id number] Cyndee Hill [facility] [address],[place] [address] 02/22/2024 13:23:48 02/22/2024 14:59:49 screening 457566069 Z36.0 Genetic in vestigation procedure 55790049 Z31.430 Routine an tenatal care 668940188 Z34.90 Gestation period, 13 weeks 60978798 Z3A.13 [id number] Cyndee Hill [facility] [address],[place] [address] 03/19/2024 14:17:25 03/19/2024 14:59:06 Gestation period, 27 weeks 12675305 Z3A.27 [id number] Marcellus Barajas MD [facility] [address],[place] [address] 04/16/2024 13:51:45 04/16/2024 15:11:20 screening for malformation 716783225 Z36.3 Z3A.21 [id number] Cyndee Hill [facility] [address],[place] [address] 04/16/2024 13:52:30 04/16/2024 15:51:46 Gestation period, 21 weeks 39243598 Z3A.21 [id number] MD Loreta Flowers [address],[place] [address] 05/14/2024 15:27:58 05/14/2024 16:03:53 screening 392878357 Z36.2 Z3A.25 [id number] [facility] [address],[place] [address] 05/14/2024 15:28:29 05/14/2024 16:48:59 Gestation period, 25 weeks 57459689 Z3A.25 [id number] Marcellus Barajas MD [facility] [address],[place] [address] 06/10/2024 09:12:28 06/10/2024 10:09:31 Observational assessment 750736142 Z03.74 Z3A.29 [id number] [facility] [address],[place] [address] 06/10/2024 09:13:03 06/10/2024 12:02:42 Gestation period, 29 weeks 77196048 Z3A.29 [id number] Marcellus Barajas MD [facility] [address],[place] [address] 06/24/2024 11:18:50 06/24/2024 12:11:00 Polyhydramnios 06882796 O40.3XX0 Z3A.31 [id number] [facility] [address],[place] [address] 06/24/2024 11:19:11 06/25/2024 10:44:19 Gestation period, 31 weeks 43530629 Z3A.31 [id number] Marcellus Barajas MD [facility] [address],[place] [address] 07/08/2024 11:56:43 07/08/2024 12:58:52 Polyhydramnios 96077271 O40.3XX0 Z3A.33 [id number] [facility] [address],[place] [address] 07/08/2024 11:57:06 07/08/2024 12:58:44 Gestation period, 33 weeks 02264226 Z3A.33 Health Concerns Section Related Observation LastModified by Organization Detai ls LastModified Time None Recorded Concern Status LastModified by Organization Details LastModified Time None Recorded Advance Directives Directive N: Payers Encounter Date Sequence Insurance Name Policy Number Policy Mccarthy Covered Member ID Mccarthy Member ID Guarantor Name 06/10/2024 1 [place] [id number] Uma Outman [id number] Uma Outman 06/24/2024 1 [place] [id number] Uma Outman [id number] Uma Outman 06/24/2024 1 [place] [id number] Uma Outman [id number] Uma Outman 07/08/2024 1 [place] [id number] Uma Outman [id number] Uma Outman 07/08/2024 1 [place] [id number] Uma Outman [id number] Uma Outman OBGyn Episode Ob Episode Information Episode Created Date Number of Fetuses Patient Bloodtype Patient rh Status Prepregnancy Weight lbs Domestic Partner Domestic Partner Phone Father Name Addictions Counselor Status 02/21/19 25 1 B Positive 179 OPEN Fetus Data First Name Last Name Admitted to NICU Weight (g) Sex Living Outcome Pediatric Complications Fetus ID Race Codes Race Delivery Type [id number] Problems Problem Notes KEYLA upper limits rpt 5/6 Problem Name Start Date End Date Resolution Snomed Code Not e Polyhydramnios 06/25/2024 [id number] Palpitations 16600664 72hr Ho lter monitor - order faxed 04/16 [facility] [place] Calculation Initial [place] Date [...] Weight in lbs Pre/Post Dialysis Refused Weight 179.987081489437 BP Diastolic BP Location Tested BP Systolic BP Type 73 115 Fetus Heart Rate Present Fetus Movement A No Comments discussed increased heart ra te, precautions and education, if persists or worsens can order library monitor, pt to monitor, G1, surgical medical hx unremarkable, start routine care, labs today us reviewed wnl Flowsheet Date 03/19/2024 Dowd Score Blood Edema Fundus Height Fundus Units Glucose Ketones Leukocytes Nitrite Labor Signs Protein Cervic Dilation Cervic Effacement Cervic Station trace Type Weight in lbs Pre/Post Dialysis Refused 180.612839851392 BP Diastolic BP Location Tested BP Systolic [...] Type Weight in lbs Pre/Post Dialysis Refused 185.861485679375 BP Diastolic BP Location Tested BP Systolic BP Type 71 119 Fetus Heart Rate Present Fetus Movement A Yes Comments Patient states that ia bernarda g elevated heart rate, headache, and discharge. Think want to proceed with heart moniter. will order x 3 days, anatomy incomplete, f/u 4weeks, discussed senior sustainability advisor, classes, f/u 4 weeks education and precautions [...] Type Weight in lbs Pre/Post Dialysis Refused 192.792908602220 BP Diastolic BP Location Tested BP Systolic [...] Weight in lbs Pre/Post Dialysis Refused Weight 195.744908407645 BP Diastolic BP Location Tested BP Systolic [...] Type Weight in lbs Pre/Post Dialysis Refused 197.359967518424 BP Diastolic BP Location Tested BP Systolic [...] Type Weight in lbs Pre/Post Dialysis Refused 200.620490515562 BP Diastolic BP Location Tested BP Systolic [...]
== END 2024-07-08 12:52 | disposition home or self-care (01) ==
PROVIDERS: PCP Family Medicine; Visit Provider Advanced Practice Midwife
DX: M79.604 Pain in right leg (principal); M79.89 Other specified soft tissue disorders
CPT/HCPCS: 93970

== ENCOUNTER 2024-08-19 09:10 | Outpatient (CLI) | payer BC, SELFPAY ==
[2024-08-19 10:11] VITALS: BP 137/83; PULSE 93
--- OUTSIDE RECORDS SUMMARY | 2024-08-19 10:12 | XMS_ITS | Clinical Summary ---
Author Organization 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
--- OUTSIDE RECORDS SUMMARY | 2024-08-19 10:12 | XMS_ITS | Data Portability ---
Author Organization [facility] Address [address] [place] [address] [place] [address] Care Team Providers Care Asset Protection Representative Name Role Phone MULTICARE SPECIALIST Primary Care Provider Assessment Encounter Date Assessment Date Assessment LastModified by Organization Details LastModified Time 08/13/2024 08/13/2024 Patient is _38__weeks . Discussed plan. Not available 08/13/2024 11:49:33 Plan of Treatment Reminders Order Date Submit Date Provider Last Modified By Organization Details Last Modified Time Details Appointments INDUCTION 2024 05:00P M Cyndee Hill CNM Not available Not available Not available Lab None recorded. Referral None recorded. Procedures None recorded. Surgeries None recorded. Imaging non-stres s test 2024 025 [email or web address] [place], [address], [place], [address], 08/15/2024 08:06:15 US, obstetric , biophysic al profile + non-stres s test 2024 025 [email or web address] [place], [address], [place], [address], 08/14/2024 22:54:00 US, obstetric , limited 2024 025 [email or web address] [place], [address], [place], [address], 08/12/2024 08:40:39 US, obstetric , biophysic al profile + non-stres s test 2024 025 FÉLIX [place], [address], [address], [place], [address], 08/06/2024 18:36:26 Medication Orders None recorded. Patient TargetsNo targets recorded. Patient InstructionsNo instructions recorded. Reason for Referral None Reported. Results Created Date Observation Date Name Description Value Unit Range Abnormal Flag Note LastModifiedBy Organization Detail LastModifiedTime 07/31/1907/30/2024 CULTU RE: GROUP B STREP SCREE N, REFLE X SUSCE PTIBI LITY result report SEE RESULT S BELOW Test: Cultu re: Group B Strep , Refle x Susce ptibi lity ([facility]/ [facility] ) Speci men Sourc e: Vagin a/Rec iglesia Speci men Type: Vagin al/Re ctal Speci men Date: 2024 1108 Resul t Date: 2024 1425 Resul t Statu s: Final resul t Abnor mal: No Resul ting Lab: [facility] [address] [facility] [address] Tel: CULTU RE ----- ----- ----- --- No Group B strep isola ezekiel at 2 days (oliver ctive broth enhan cemen t) Not Available [facility] (Lab) [address] [facility], [place], [address], 08/02/2024 15:29:50 07/09/19 25 07/08/2024 US, obste tric, follo w-up No observ ation record ed. [email or web address] [place] [address], [place], [address], 07/08/2024 13:55:54 07/09/19 25 07/08/2024 US, obste tric, follo w-up No observ ation record ed. Deann [address], [place], [address], 07/15/2024 23:13:21 07/09/19 25 07/08/2024 US, darrel jenkins venou s, lower extre mity No observ ation record ed. [email or web address], [place], [address], 07/10/2024 09:36:56 07/09/19 25 07/08/2024 US, darrel jenkins venou s, lower extre mity No observ ation record ed. [email or web address], [place], [address], 07/10/2024 09:36:57 07/10/19 25 07/09/2024 non-s tress test No observ ation record ed. [email or web address] [place] [address], [place], [address], 07/09/2024 13:51:30 07/10/19 25 07/08/2024 non-s tress test No observ ation record ed. [email or web address] [place] [address], [place], [address], 07/09/2024 13:54:12 07/17/19 25 07/16/2024 US, ania tapia bioph ysica l profi le + non-s tress test No observ ation record ed. [email or web address] [place] [address], [place], [address], 07/16/2024 17:25:18 07/17/19 25 07/16/2024 US, ania tapia follo w-up No observ ation record ed. [email or web address] [address], [place], [address], 07/17/2024 10:29:25 07/17/19 25 07/16/2024 non-s tress test No observ ation record ed. [email or web address] [place] [address], [place], [address], 07/16/2024 20:39:46 07/17/19 25 07/16/2024 non-s tress test No observ ation record ed. [email or web address] [place] [address], [place], [address], 07/16/2024 20:43:13 07/24/19 25 07/23/2024 US, obste tric, limit ed No observ ation record ed. [email or web address] [place] [address], [place], [address], 07/23/2024 17:39:23 07/24/19 25 07/23/2024 non-s tress test No observ ation record ed. [email or web address] [place] [address], [place], [address], 07/23/2024 19:24:56 07/24/19 25 07/23/2024 US, obsteverardo tric, limit ed No observ ation record ed. De[address], [place], [address], 07/25/2024 12:13:40 07/24/19 25 07/23/2024 US, obste tric, follo w-up No observ ation record ed. [address], [place], [address], 07/29/2024 08:41:37 07/31/19 25 07/30/2024 US, obste tric, follo w-up No observ ation record ed. [email or web address] [address], [place], [address], 08/06/2024 18:13:32 07/31/19 25 07/30/2024 US, obste tric, follo w-up No observ ation record ed. [email or web address] [place] [address], [place], [address], 07/30/2024 14:38:43 07/31/19 25 07/30/2024 US, obste tric, bioph ysica l profi le + non-s tress test No observ ation record ed. [email or web address] [place] [address], [place], [address], 07/30/2024 14:38:53 07/31/19 25 07/30/2024 non-s tress test No observ ation record ed. [email or web address] [place] [address], [place], [address], 07/30/2024 19:15:50 07/31/19 25 07/30/2024 non-s tress test No observ ation record ed. [email or web address] [place] [address], [place], [address], 07/30/2024 19:17:50 08/07/19 25 08/06/2024 US, obste tric, bioph ysica l profi le + non-s tress test No observ ation record ed. [email or web address] [place] [address], [place], [address], 08/06/2024 18:44:42 08/07/19 25 08/06/2024 US, obste tric, bioph ysica l profi le + non-s tress test No observ ation record ed. [email or web address] [address] [facility], [place], [address], 08/06/2024 19:17:32 08/07/19 25 08/06/2024 US, obste tric, bioph ysica l profi le + non-s tress test No observ ation record ed. [email or web address] [address], [place], [address], 08/06/2024 19:17:32 08/07/19 25 08/06/2024 US, obste tric, bioph ysica l profi le + non-s tress test No observ ation record ed. [email or web address] [address], [place], [address], 08/06/2024 19:17:32 08/10/19 25 08/06/2024 non-s tress test No observ ation record ed. [email or web address] [place] [address], [place], [address], 08/09/2024 09:42:20 08/12/19 25 08/06/2024 non-s tress test No observ ation record ed. [email or web address] [place] [address], [place], [address], 08/11/2024 11:31:12 08/12/19 25 08/11/2024 , obste tric, limit ed No observ ation record ed. [email or web address] [place] [address], [place], [address], 08/11/2024 18:15:28 08/12/19 25 08/11/2024 US, obste tric, limit ed No observ ation record ed. [email or web address] [address], [place], [address], 08/13/2024 13:29:47 08/14/19 25 08/13/2024 US, obste tric, bioph ysica l profi le + non-s tress test No observ ation record ed. [email or web address] [place] [address], [place], [address], 08/13/2024 11:55:17 06/25/08/13/2024 US, obste tric, follo w-up No observ ation record ed. [email or web address] [address], [place], [address], 08/13/2024 16:35:46 08/15/1908/14/2024 non-s tress test No observ ation record ed. [email or web address] [place] [address], [place], [address], 08/14/2024 14:45:35 Result Notes None recorded. Problems Name Problem SNOMED Code Status Onset Date Resolution Date Notes Provider Name and Address Organization Details Recorded Time Uses contrace ptive implant 125484548 Completed 201909/16/2020 due out 05/2022 Roberta hinds, [facility] 12:20:31 Urinary tract infectio us disease 15733400 Completed 201609/16/2020 Urinary tract infectio n, site not specifie d;Practi ce ID: 0001 Roberta hinds, [facility] 12:20:28 Evaluati on finding Completed 201609/16/2020 Hematuri a, unspecif ied;Prac yared ID: 0001 Roberta hinds, [facility] 12:19:42 Procedur e Completed 201609/16/2020 Enctr srvlnc implanta ble subderma l contrace ptive;Pr actice ID: 0001 Roberta hinds, [facility] 12:19:59 Pregnanc y test negative 343045186 Completed 201609/16/2020 Encounte r for pregnanc y test, result negative ;Practic e ID: 0001 Roberta hinds, [facility] 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 12:20:12 Sexually transmit ezekiel infectio us disease 2866772 Completed 201709/16/2020 Unspecif ied sexually transmit ezekiel disease; Practice ID: 0001 Roberta hinds [facility] 12:20:05 Acute vaginiti s 60758004 Completed 201709/16/2020 Acute vaginiti s;Practi ce ID: 0001 Roberta Coleman lizet [facility] 12:19:31 Contrace ptive sheath status 052268382 Completed 201909/16/2020 Encounte r for initial prescrip tion of other contrace ptives;P ractice ID: 0001 Roberta Coleman [facility] 12:19:[address] Concept Completed 201709/16/2020 Encntr for general adult medical exam w/o abnormal findings ;Recorde d Elsewher e: No Locat ion: [facility] S ource: EHR Mailroom Clerk paulo: N Practi ce ID: 0001 Feliz lable Time: 01:30:00 PM Roberta hinds [facility] 12:20:[address] Concept Completed 201509/16/2020 Encntr for routine child health exam w/o abnormal findings ;Recorde d Elsewher e: No Locat ion: [facility] S ource: EHR Mailroom Clerk paulo: N Practi ce ID: 0001 Feliz lable Time: 01:30:00 PM Roberta Coleman lizet [facility] 12:20:10 Speciali zed medical examinat ion Completed 201409/16/2020 ROUTINE MISSILE CONTROL PILOT EXAMINAT ION;Jon rded Elsewher e: No Locat ion: [facility] S ource: EHR Mailroom Clerk paulo: N Practi ce ID: 0001 Feliz lable Time: 01:30:00 PM Roberta hinds, [facility] 1 12:20:18 Syphilis test finding 965623983 Completed 201509/16/2020 Encntr screen for infectio ns w sexl mode of transmis s;Record ed Elsewher e: No Locat ion[facility] S ource: EHR Mailroom Clerk paulo: N Practi ce ID: 0001 Feliz lable Time: 01:30:00 PM Roberta hinds, [facility] 1 12:20:23 Screenin g for malignan t neoplasm of cervix Completed 201309/16/2020 Screenin g for malignan t neoplasm s of the cervix;R ecorded Elsewher e: No Locat ion: [facility] S ource: EHR Mailroom Clerk paulo: N Practi ce ID: 0001 Feliz lable Time: 09:15:00 AM Roberta Coleman lizet, [facility] 1 12:20:02 Speciali zed medical examinat ion Completed 201409/16/2020 Other specifie d chlamydi al diseases ;Recorde d Elsewher e: No Locat ion: [facility] S ource: EHR Mailroom Clerk paulo: N Practi ce ID: 0001 Feliz lable Time: 01:30:00 PM Roberta hinds [facility] 1 12:20:[address] Concept Completed 201909/16/2020 Nexplano n;Record ed Elsewher e: No Locat ion: [facility] S ource: EHR Mailroom Clerk paulo: N Practi ce ID: 0001 Feliz lable Time: 01:00:00 PM Roberta hinds, [facility] 1 12:20:15 Implanta tion of subcutan eous contrace ptive Completed 201309/16/2020 Insertio n of implanta ble subderma l contrace ptive;Re corded Elsewher e: No [facility] Mailroom Clerk paulo: N Practi ce ID: 0001 Feliz lable Time: 10:30:00 AM Roberta hinds, [facility] 1 12:19:48 Venereal disease screenin g Completed 201409/16/2020 Screenin g examinat ion for venereal disease; Recorded Elsewher e: No Locat ion: [facility] S ource: EHR Mailroom Clerk paulo: N Practi ce ID: 0001 Feliz lable Time: 01:30:00 PM Roberta Coleman [facility] 12:20:33 Infectio n screenin g Completed 201509/16/2020 Encounte r for screenin g for oth infec/pa rastc diseases ;Recorde d Elsewher e: No Locat ion: [facility] S ource: EHR Mailroom Clerk paulo: N Practi ce ID: 0001 Feliz lable Time: 01:30:00 PM Roberta Coleman [facility] 12:19:44 Leukorrh ea 884099875 Completed 201409/16/2020 Leukorrh ea, not specifie d as infectiv e;Record ed Elsewher e: No Locat ion: [facility] S ource: EHR Mailroom Clerk paulo: N Practi ce ID: 0001 Feliz lable Time: 04:00:00 PM Roberta hinds [facility] 12:19:51 Dysuria 70029945 Completed 201409/16/2020 Dysuria; Recorded Elsewher e: No Locat ion: [facility] S ource: EHR Mailroom Clerk paulo: N Practi ce ID: 0001 Feliz lable Time: 04:00:00 PM [facility] 12:19:39 Microsco pic hematuri a 006232117 Completed 201409/16/2020 MICROSCO PIC HEMATURI A;Practi ce ID: 0001 Roberta hinds, [facility] 12:19:53 Adult health examinat ion Completed 201409/16/2020 Routine general medical examinat ion at a [facility] facility ;Practic e ID: 0001 Roberta hinds, [facility] 12:19:33 Pregnanc y 18748284 Active 2024 Roberta Coleman lizet, [facility] 5 14:14:04 Palpitat ions 91828709 Active 72hr Holter monitor - order faxed 04/16 [place] outpatie nt cardiolo gy rAlen [facility] 5 15:55:52 Palpitat ions 63189532 Active 72hr Holter monitor - order faxed 04/16 [place] outpatie nt cardiolo gy Arlen [facility], [facility] 5 15:55:51 Polyhydr amnios 39421078 Active 2024 Cyndee Hill CNM [address], [place], [address], [facility] 5 09:13:30 Problem Notes None recorded. Procedures Surgical History Date Name Laterality Status Provider Name and Address Organization Details Recorded Time 07/31/19 24 Nexplanon Removal completed KOBE Duarte- [address], [place], [address], [facility] 07/31/2023 14:52:59 07/10/19 24 Date of Last Pap Smear completed Roberta Coleman [facility] 07/10/2023 14:11:06 04/20/19 23 Control Implant Insertion completed Cyndee Hill CNM [address], [place], [address], [facility] 04/19/2022 15:16:57 04/20/19 23 Nexplanon Removal completed Cyndee Hill CNM [address], [place], [address], [facility] 04/19/2022 15:19:55 10/27/19 22 Colposcopy completed Cyndee Hill CNM [address], [place], [address], [facility] 10/26/2021 11:51:08 10/27/19 22 Colposcopy completed Roberta Coleman [facility] 10/26/2021 11:06:19 10/27/19 22 Colposcopy completed Roberta Coleman [facility] 10/26/2021 11:06:12 02/19/19 20 extraction of wisdom tooth completed Roberta Coleman [facility] 09/21/2021 12:37:26 Imaging Results None recorded. Procedure Notes None recorded. Medical Equipment None Reported. Allergies Allergen ID Allergen Name Allergen Category Reaction Reaction Severity Criticality Documentation Date Start Date Code Code System Note Provider Name and Address Organization Details Recorded Time 788 nitrofura ntoin medicatio n Not available Not available Not available 07/18/2019 7454 RxNorm Chio hinds, [facility] 0 14:41:01 Medications Name Sig Start Date Stop Date Status Note LastModified by Organization Details LastModified Time acetamino phen 325 mg tablet take 1 tablet by oral route every 4 hours as needed 02/14 completed Prescrib ed Elsewher e: Yes Loca tion: [facility] Serena odify By: annette crawford DateTime : 03/13/19 [...] Prescrib ed Elsewher e: No Locat ion: [facility] odify By: jorge buenrostro DateTime : 07/12/19 18 01:45:00 PM Not Available Not Available Not Available Macrobid 100 mg capsule take 1 capsule by oral route 2 times every day for 7 days with food 11/22 completed Prescrib ed Elsewher e: No Locat ion: [facility] odify By: erick buenrostro DateTime : 11/17/19 [...] Prescrib ed Elsewher e: No Locat ion: [facility] odify By: [email or web address] En counter DateTime [...] weight Body mass index (BMI) Body height Body height Body mass index (BMI) Body weight Systolic blood pressure Diastolic blood pressure Systolic blood pressure Diastolic blood pressure Provider Name and Address Organization Details Last Updated DateTime 5 53638.3 977 g 33.6 kg/m2 168.28 cm 168.28 cm 33.6 kg/m2 96524.4 g 115 mm[Hg] 73 mm[Hg] 115 mm[Hg] 73 mm[Hg] Roberta Coleman [facility] 5 09:40:45 Date Recorded Body height Body mass index (BMI) Body weight Systolic blood pressure Diastolic blood pressure Provider Name and Address Organization Details Last Updated DateTime 08/13/2024 168.28 cm 34.4 kg/m2 12392.36 g 121 mm[Hg] 79 mm[Hg] Sultana Austin [facility] 5 10:47:04 Social History Question Answer Notes LastModified by Organizat ion Details LastModified Time Tobacco Smoking Status Former Sm[facility] 10/26/2021 10:57:14 Do You Have An Advance Directive? No [email or web address] Information not available 09/17/2020 If You Are , What Was Your Level Of Alcohol Consumption Prior To ? Occasional [email or web address] Information not available 02/22/2024 How Many Years Have You Consumed Alcohol? 4 [email or web address] Information not available 09/21/2021 Are You Blind Or Do You Have Difficulty Seeing? No [email or web address] Information not available 09/17/2020 What Is Your Level Of Caffeine Consumption? Occasional [email or web address] Information not available 09/21/2021 How Much Tobacco Do You Chew? None [email or web address] Information not available 09/17/2020 In The 14 Days Before Symptom Onset, Have You Had Close Contact With A Laboratory-confir med COVID-19 While That Case Was Ill? No [email or web address] Information not available 09/17/2020 In The 14 Days Before Symptom Onset, Have You Had Close Contact With A Person Who Is Under Investigation For COVID-19 While That Person Was Ill? No [email or web address] Information not available 09/17/2020 Have You Been To An Area Known To Be High Risk For COVID-19? No [email or web address] Information not available 09/17/2020 Are You Deaf Or Do You Have Serious Difficulty Hearing? No [email or web address] Information not available 09/17/2020 What Type Of Diet Are You Following? REGULAR [email or web address] Information not available 09/17/2020 What Is The Highest Grade Or Level Of School You Have Completed Or The Highest Degree You Have Received? [id number] [email or web address] Information not available 09/17/2020 Are There Any Guns Present In Your Home? No [email or web address] Information not available 09/17/2020 What Was The Date Of Your Most Recent Tobacco Screening? 08/06/2024 [email or web address] Information not available 08/06/2024 Have You Ever Been Counseled For Unhealthy Alcohol Use? No [email or web address] Information not available 10/26/2021 Do You Use Protection During Sex? Usually [email or web address] Information not available 09/17/2020 Do You Use Your Seat Belt Or Car Seat Routinely? Yes [email or web address] Information not available 09/17/2020 Do You Have Smoke And Carbon Monoxide Detectors In Your Home? Yes [email or web address] Information not available 09/17/2020 How Much Tobacco Do You Smoke? No [email or web address] Information not available 08/29/2019 Do You Use Sunscreen Routinely? Yes [email or web address] Information not available 09/17/2020 Has Tobacco Cessation Counseling Been Provided? No Information not available 10/26/2021 Have You Used IV Drugs? No [email or web address] Information not available 09/17/2020 Do You Have Difficulty Walking Or Climbing Stairs? No [email or web address] Information not available 10/26/2021 Sex: Female Functional Status Question Answer Note LastModified by Organizat ion Details LastModified Time Do you use any illicit or recreational drugs? No [email or web address] Information not available 09/17/2020 Do you or have you ever used any other forms of tobacco or nicotine? No [email or web address] Information not available 10/26/2021 What is your level of alcohol consumption? None [email or web address] Information not available 02/22/2024 Are you able to walk? YESWOREST Information not available 09/17/2020 Are you able to care for yourself? 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 No [email or web address] Information not available 10/26/2021 What is your exercise level? Occasional [email or web address] Information not available 08/29/2019 Mental Status Question Answer Note LastModified by Organization D etails LastModified Time Do you feel stressed (tense, restless, nervous, or anxious, or unable to sleep at night)? [id number] [email or web address] Information not available 09/17/2020 Family History Relationship Description Onset Age of this Age Resolved Age Notes LastModified by Organization Details LastModified Time Mother Disorder of thyroid gland [email or web address] Not available 08/28 10:45:06 Brother Diabetes mellitus [email or web address] Not available 08/28 10:45:13 Maternal Grandmother Heart disease has pacema ker [email or web address] Not available 08/29/2019 10:45:25 Notes:No family history of C ancer, cervical Medical History Condition Response Other N Blood Transfusion N Dermatologic Disorders N Gestational Diabetes N Anxiety Disorder N Autoimmune disease N Arthritis N Polyps N Infertility N Acid Reflux (GERD) N Cancer N Varicosities N Stroke N Neurologic/Epilepsy N Fibromyalgia N Headaches N Kidney Disease N Heart Problems N Kidney or Bladder Problems N Eating Disorder N Art (IVF or FET) N Hepatitis/Liver Disease N Urinary Tract Infection N Asthma N Trauma/Violence N Thrombophilias N Allergies (Food, seasonal, environmental ) N Breast Cancer N Drug/Latex Allergies/Reactions Y Lung Disease N Defects or Inherited Disease N Breast Problem N Hematologic disorders N Anesthesia Complications N History of STI N Deep Vein Thrombosis N Polycystic ovary syndrome N History of abnormal pap Y Endometriosis N High Cholesterol N Thyroid Problems N GI Problems N Anemia N Psychiatric Illness N Ovarian Cancer N Diabetes N Pulmonary (TB, Asthma) N Eczema N Abuse/Domestic Violence N Depression/ depression N Heart Disease N Pre-Eclampsia N Hypertension N Osteoporosis N Gynecological History Statement/Question Response Abnormal Pap [...] Diagnosis Note [id number] Estela Varma [facility] [address],[place] [address] 07/18/2019 14:50:26 08/01/2019 15:45:55 Urine test negative 359559284 Z32.02 Urinary tr act infectious disease 26121357 N39.0 Urine sent +WBC Vaginitis 98986301 N76.0 Exam is suspect for BV. Treated for presumptiv e BV solosec. Counseled on medication R/B's, Most common side effects, & use. All questions were answered to patient satisfacti on. Coupon given. Time spent in visit is a total of 15 mins with at least 50% of visit consisting of counseling and review of plan of care. [id number] Cyndee Hill CNM [place] [address],[place] [address] 08/29/2019 10:25:30 08/29/2019 11:12:45 Gynecologic examination 86164778 Z01.419 declines blood work [id number] Cyndee Hill CNM [place] [address],[place] [address] 04/19/2022 13:43:32 04/19/2022 16:00:24 Screening procedure 21330438 Z13.9 Implantati on of subcutaneous contraceptive 508466498 Z30.9 Postoperative care 19023 9007 Z48.89 Removal of subcutaneous contraceptive 171404815 Z30.46 [id number] Kaylyn Fishman MD [place] [address],[place] [address] 01/14/2020 14:48:31 01/14/2020 15:52:55 Low back pain 685063842 M54.5 Venereal d isease screening 275994695 Z11.3 16929 Cyndee Hill [facility] [address],[place] [address] 09/17/2020 09:30:34 09/17/2020 10:42:36 Gynecologic examination 24725870 Z01.419 declines blood work [id number] Cyndee Hill [facility] [address],[place] [address] 09/21/2021 11:58:02 09/21/2021 13:17:13 Gynecologic examination 36636757 Z01.419 Z11.3 Z11.8 Vaginitis 88010057 N76.0 [id number] Cyndee Hill [facility] [address],[place] [address] 10/26/2021 10:55:01 10/26/2021 12:09:44 Screening procedure 35119338 Z13.9 Atypical s quamous cells of undetermined significance on cervical Papanicolaou smear [id number] R87.610 cannot r/o hsil [id number] Estela Varma [facility] [address],[place] [address] 10/03/2022 12:39:48 10/03/2022 13:22:39 Gynecologic examination 76597062 Z01.419 Take Calcium with Vitamin D 1200mg [...] olon Screen naDexa Screen naRoutine Labs PCP [id number] Cyndee Hill [facility] [address],[place] [address] 04/26/2022 13:53:58 04/26/2022 14:54:42 All medication checked 846210039 Z76.89 precaution s reviewed f/u wwe [id number] Estela Varma [facility] [address],[place] [address] 06/08/2022 17:00:54 06/10/2022 14:14:08 Tampon retained in vagina [id number] Z18.89 Today we did NOT find a retained tampon on exam.Exam was WNLShe is grateful and has no further questions or issues. Time spent in visit is a total of 10 mins with at least 50% of visit consisting of counseling and review of plan of care. [id number] Estela Varma [facility] [address],[place] [address] 07/31/2023 14:16:04 07/31/2023 15:03:02 Removal of subcutaneous contraceptive 171411148 Z30.46 Removal site was cleansed with betadine and 3cc of lidocaine used for anesthesia . Device was removed in normal fashion without difficulty . Steri stips and pressure bandage placed. [id number] Estela Varma [facility] [address],[place] [address] 07/10/2023 13:44:32 07/10/2023 17:59:41 Gynecologic examination 90588838 Z01.419 Take Calcium with Vitamin D 1200mg [...] olon Screen naDexa Screen naRoutine Labs PCP [id number] Marcellus Barajas MD [place] [address],[place] [address] 01/16/2024 12:14:10 01/16/2024 12:36:34 [id number] Cyndee Hill CNM [place] [address],[place] [address] 01/16/2024 12:36:16 01/16/2024 14:21:43 Venereal disease screening 474788286 Z11.3 Amenorrhea 95947753 N91. 2 pap up to datereview ed vaccines, education, precaution sdiscussed margareth on us precaution s reviewedf/ u new ob and first lookunsure about nipt will check insurance [id number] Marcellus Barajas MD [place] [address],[place] [address] 02/22/2024 13:23:16 02/22/2024 14:09:27 screening 426281671 Z36.82 Z3A.13 [id number] [facility] [address],[place] [address] 02/22/2024 13:23:48 02/22/2024 14:59:49 screening 880681010 Z36.0 Genetic in vestigation procedure 00564032 Z31.430 Routine an tenatal care 276822974 Z34.90 Gestation period, 13 weeks 04118079 Z3A.13 [id number] Cyndee Hill [facility] [address],[place] [address] 03/19/2024 14:17:25 03/19/2024 14:59:06 Gestation period, 27 weeks 84921417 Z3A.27 [id number] Marcellus Barajas MD [place] [address],[place] [address] 1 04/16/2024 13:51:45 04/16/2024 15:11:20 screening for malformation 607748530 Z36.3 Z3A.21 [id number] Cyndee Hill [facility] [address],[place] [address] 04/16/2024 13:52:30 04/16/2024 15:51:46 Gestation period, 21 weeks 19985048 Z3A.21 [id number] Marcellus Barajas MD [place] [address],[place] [address] 05/14/2024 15:27:58 05/14/2024 16:03:53 screening 925525520 Z36.2 Z3A.25 [id number] Cyndee Hill [facility] [address],[place] [address] 05/14/2024 15:28:29 05/14/2024 16:48:59 Gestation period, 25 weeks 71204133 Z3A.25 [id number] Marcellus Barajas MD [place] [address],[place] [address] 06/10/2024 09:12:28 06/10/2024 10:09:31 Observational assessment 077701796 Z03.74 Z3A.29 [id number] Cyndee Hill [facility] [address],[place] [address] 1 06/10/2024 09:13:03 06/10/2024 12:02:42 Gestation period, 29 weeks 13644718 Z3A.29 [id number] Marcellus Barajas MD [place] [address],[place] [address] 1 06/24/2024 11:18:50 06/24/2024 12:11:00 Polyhydramnios [id number] O40.3XX0 Z3A.31 [id number] [facility] [address],[place] [address] 06/24/2024 11:19:11 06/25/2024 10:44:19 Gestation period, 31 weeks 20322417 Z3A.31 [id number] Marcellus Barajas MD [place] [address],[place] [address] 1 07/08/2024 11:56:43 07/08/2024 12:58:52 Polyhydramnios [id number] O40.3XX0 Z3A.33 [id number] [facility] [address],[place] [address] 1 07/08/2024 11:57:06 07/08/2024 12:58:44 Gestation period, 33 weeks 57540546 Z3A.33 [id number] [facility] [address],[place] [address] 07/09/2024 13:48:03 07/10/2024 02:48:29 Polyhydramnios [id number] O40.3XX0 [id number] Marcellus Barajas MD [place] [address],[place] [address] 1 07/16/2024 09:06:51 07/16/2024 09:48:52 Polyhydramnios [id number] O40.3XX0 Z3A.34 [id number] Cyndee Hill [facility] [address],[place] [address] 1 07/16/2024 09:19:58 08/10/2024 09:13:23 [id number] Cyndee Hill [facility] [address],[place] [address] 1 07/16/2024 09:45:54 07/17/2024 09:44:36 Polyhydramnios [id number] O40.3XX0 [id number] Cyndee Hill [facility] [address],[place] [address] 07/16/2024 16:34:14 07/17/2024 09:17:08 Gestation period, 34 weeks 62161022 Z3A.34 [id number] Marcellus Barajas MD [place] [address],[place] [address] 07/23/2024 11:32:59 07/23/2024 12:22:59 Polyhydramnios [id number] O40.3XX0 Z3A.35 [id number] Cyndee Hill [facility] [address],[place] [address] 1 07/23/2024 11:33:27 07/23/2024 17:29:04 Polyhydramnios [id number] O40.3XX0 [id number] [facility] [address],[place] [address] 07/23/2024 11:33:59 07/23/2024 19:30:03 [id number] [facility] [address],[place] [address] 1 07/23/2024 16:27:20 07/23/2024 17:24:11 Gestation period, 35 weeks 45157090 Z3A.35 [id number] Marcellus Barajas MD [place] [address],[place] [address] 07/30/2024 10:23:55 07/30/2024 11:26:38 Polyhydramnios [id number] O40.3XX0 O36.60X0 Z3A.36 [id number] [facility] [address],[place] [address] 1 07/30/2024 10:24:17 07/30/2024 13:21:48 Gestation period, 36 weeks 73302865 Z3A.36 screening 2437 39641 Z36.85 Polyhydramnios [id number] O40.9XX0 [id number] MAGALYS LAY MD [place] [address],[place] [address] 07/30/2024 10:24:30 07/31/2024 09:05:48 Polyhydramnios [id number] O40.9XX0 [id number] Marcellus Barajas MD [place] [address],[place] [address] 08/06/2024 09:27:13 08/06/2024 10:47:17 Polyhydramnios 15481376 O40.3XX0 Z3A.37 [id number] [facility] [address],[place] [address] 08/06/2024 09:31:27 08/06/2024 11:29:18 Gestation period, 37 weeks 75887661 Z3A.37 Polyhydramnios 09960028 O40.3XX0 [id number] [facility] [address],[place] [address] 08/06/2024 09:31:51 08/11/2024 03:55:06 Polyhydramnios 76317979 O40.3XX0 [id number] Marcellus Barajas MD [place] [address],[place] [address] 08/11/2024 13:27:56 08/11/2024 13:59:48 Spotting per vagina in 428266288 O26.859 O40.3XX0 Z3A.37 [id number] Marcellus Barajas MD [place] [address],[place] [address] 08/13/2024 09:53:49 08/13/2024 10:24:10 Polyhydramnios [id number] O40.3XX0 Z3A.38 [id number] Cyndee Hill [facility] [address],[place] [address] 08/13/2024 09:54:01 08/13/2024 11:55:15 Gestation period, 38 weeks [id number] Z3A.38 [id number] Cyndee Hill [facility] [address],[place] [address] 08/13/2024 09:54:10 08/14/2024 15:26:57 Polyhydramnios 37107279 O40.3XX0 Health Concerns Section Related Observation LastModified by Organization Detai ls LastModified Time None Recorded Concern Status LastModified by Organization Details LastModified Time None Recorded Advance Directives Directive N: Payers Insurance Date Sequence Insurance Name Policy Number Policy Mccarthy Covered Member ID Mccarthy Member ID Guarantor Name 05/30/2023 1 TANIVAN [id number] Dedrick [place] [id number] 3 [facility] 08/19/2024 1 [place] [id number] Uma Crockercarlton [id number] [facility] 08/20/2023 1 [place] [id number] Uma C David [id number] [facility] OBGyn Episode Ob Episode Information Episode Created Date Number of Fetuses Patient Bloodtype Patient rh Status Prepregnancy Weight lbs Domestic Partner Domestic Partner Phone Father Name Puppet Developer Status 02/21/19 25 1 B Positive 179 OPEN Fetus Data First Name Last Name Admitted to NICU Weight (g) Sex Living Outcome Pediatric Complications Fetus ID Race Codes Race Delivery Type [id number] Problems Problem Notes KEYLA upper limits rpt 5/6 Problem Name Start Date End Date Resolution Snomed Code Not e Polyhydramnios 06/25/2024 [id number] Palpitations [id number] 72hr Ho lter monitor - order faxed 04/16 [place] outpatient cardiology Ish[place] Calculation Initial Ishaan Date [...] Weight in lbs Pre/Post Dialysis Refused Weight 179.065461619781 BP Diastolic BP Location Tested BP Systolic BP Type 73 115 Fetus Heart Rate Present Fetus Movement A No Comments discussed increased heart ra te, precautions and education, if persists or worsens can order classroom monitor, pt to monitor, G1, surgical medical hx unremarkable, start routine care, labs today us reviewed wnl Flowsheet Date 03/19/2024 Dowd Score Blood Edema Fundus Height Fundus Units Glucose Ketones Leukocytes Nitrite Labor Signs Protein Cervic Dilation Cervic Effacement Cervic Station trace Type Weight in lbs Pre/Post Dialysis Refused 180.469252532570 BP Diastolic BP Location Tested BP Systolic [...] Type Weight in lbs Pre/Post Dialysis Refused 185.394430962847 BP Diastolic BP Location Tested BP Systolic BP Type 71 119 Fetus Heart Rate Present Fetus Movement A Yes Comments Patient states that doron mench[place] g elevated heart rate, headache, and discharge. Think want to proceed with heart moniter. 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, classes, f/u 4 weeks education and precautions [...] Type Weight in lbs Pre/Post Dialysis Refused 192.303469138608 BP Diastolic BP Location Tested BP Systolic [...] Weight in lbs Pre/Post Dialysis Refused Weight 195.794308347186 BP Diastolic BP Location Tested BP Systolic [...] Present Fetus Movement Comments Flowsheet Date 06/24/2024 Odwd Score Blood Edema Fundus Height Fundus Units Glucose Ketones Leukocytes Nitrite Labor Signs Protein Cervic Dilation Cervic Effacement Cervic Station neg none Type Weight in lbs Pre/Post Dialysis Refused 197.827966208838 BP Diastolic BP Location Tested BP Systolic [...] Weight in lbs Pre/Post Dialysis Refused Weight 200.594408916078 BP Diastolic BP Location Tested BP Systolic BP Type 76 129 Fetus Heart Rate Present Fetus Movement Comments [...] Type Weight in lbs Pre/Post Dialysis Refused 200.169414896088 BP Diastolic BP Location Tested BP Systolic [...] 39 week iol f/u one week, bpp 8/8 nst to follow Flowsheet Date 07/16/2024 Dowd Score Blood Edema Fundus Height Fundus Units Glucose Ketones Leukocytes Nitrite Labor Signs Protein Cervic Dilation Cervic Effacement Cervic Station Type Weight in lbs Pre/Post Dialysis Refused BP Diastolic BP Location Tested BP Systolic BP Type Fetus Heart Rate Present Fetus Movement Comments Flowsheet Date 07/16/2024 Dowd Score Blood Edema Fundus Height Fundus Units Glucose Ketones Leukocytes Nitrite Labor Signs Protein Cervic Dilation Cervic Effacement Cervic Station Type Weight in lbs Pre/Post Dialysis Refused BP Diastolic BP Location Tested BP Systolic BP Type Fetus Heart Rate Present Fetus Movement Comments Flowsheet Date 07/16/2024 Dowd Score Blood Edema Fundus Height Fundus Units Glucose Ketones Leukocytes Nitrite Labor Signs Protein Cervic Dilation Cervic Effacement Cervic Station Type Weight in lbs Pre/Post Dialysis Refused Weight 203.415396020945 BP Diastolic BP Location Tested BP Systolic BP Type 74 106 Fetus Heart Rate Present Fetus Movement Comments Flowsheet Date 07/16/2024 Dowd Score Blood Edema Fundus Height Fundus Units Glucose Ketones Leukocytes Nitrite Labor Signs Protein Cervic Dilation Cervic Effacement Cervic Station neg trace Type Weight in lbs Pre/Post Dialysis Refused Weight 203.144040694005 BP Diastolic BP Location Tested BP Systolic BP Type 74 106 Fetus Heart Rate Present Fetus Movement A Yes Comments Patient is having some itchi ng, pain, pressure and swelling. ok for hydrocortisone cream to 2 spots on abd, reviewed US, +FM, plan IOL around 39 weeks, gbs at 36 weeks precautions and education Flowsheet Date 07/23/2024 Dowd Score Blood Edema Fundus Height Fundus Units Glucose Ketones Leukocytes Nitrite Labor Signs Protein Cervic Dilation Cervic Effacement Cervic Station Type Weight in lbs Pre/Post Dialysis Refused BP Diastolic BP Location Tested BP Systolic BP Type Fetus Heart Rate Present Fetus Movement Comments Flowsheet Date 07/23/2024 Dowd Score Blood Edema Fundus Height Fundus Units Glucose Ketones Leukocytes Nitrite Labor Signs Protein Cervic Dilation Cervic Effacement Cervic Station Type Weight in lbs Pre/Post Dialysis Refused BP Diastolic BP Location Tested BP Systolic BP Type Fetus Heart Rate Present Fetus Movement Comments Flowsheet Date 07/23/2024 Dowd Score Blood Edema Fundus Height Fundus Units Glucose Ketones Leukocytes Nitrite Labor Signs Protein Cervic Dilation Cervic Effacement Cervic Station Type Weight in lbs Pre/Post Dialysis Refused Weight 206.432398185498 BP Diastolic BP Location Tested BP Systolic BP Type 73 L arm 106 sitting Fetus Heart Rate Present Fetus Movement Comments Flowsheet Date 07/23/2024 Dowd Score Blood Edema Fundus Height Fundus Units Glucose Ketones Leukocytes Nitrite Labor Signs Protein Cervic Dilation Cervic Effacement Cervic Station neg trace Type Weight in lbs Pre/Post Dialysis Refused Weight 206.588277565615 BP Diastolic BP Location Tested BP Systolic BP Type 73 106 Fetus Heart Rate Present Fetus Movement A Yes Comments Patient is having pain, pres sure, contractions, swelling and nausea. +FM discussed 39 week IOL, scheduled for 08/19, polyhydramnios bpp 8/10 f/u one week with gbs Flowsheet Date 07/30/2024 Dowd Score Blood Edema Fundus Height Fundus Units Glucose Ketones Leukocytes Nitrite Labor Signs Protein Cervic Dilation Cervic Effacement Cervic Station Type Weight in lbs Pre/Post Dialysis Refused BP Diastolic BP Location Tested BP Systolic BP Type Fetus Heart Rate Present Fetus Movement Comments Flowsheet Date 07/30/2024 Dowd Score Blood Edema Fundus Height Fundus Units Glucose Ketones Leukocytes Nitrite Labor Signs Protein Cervic Dilation Cervic Effacement Cervic Station neg trace Type Weight in lbs Pre/Post Dialysis Refused 207.664901426426 BP Diastolic BP Location Tested BP Systolic BP Type 80 125 Fetus Heart Rate Present Fetus Movement A Yes Comments Patient is having some cramp ing and swelling. polyhydramnios, IOL scheduled for 08/19 efw 90% AC 98%, +FM, bpp 10/10 education and precautions f/u one week Flowsheet Date 07/30/2024 Dowd Score Blood Edema Fundus Height Fundus Units Glucose Ketones Leukocytes Nitrite Labor Signs Protein Cervic Dilation Cervic Effacement Cervic Station Type Weight in lbs Pre/Post Dialysis Refused Weight 207.986060440198 BP Diastolic BP Location Tested BP Systolic BP Type 80 125 Fetus Heart Rate Present Fetus Movement Comments Flowsheet Date 08/06/2024 Dowd Score Blood Edema Fundus Height Fundus Units Glucose Ketones Leukocytes Nitrite Labor Signs Protein Cervic Dilation Cervic Effacement Cervic Station Type Weight in lbs Pre/Post Dialysis Refused BP Diastolic BP Location Tested BP Systolic BP Type Fetus Heart Rate Present Fetus Movement Comments Flowsheet Date 08/06/2024 Dowd Score Blood Edema Fundus Height Fundus Units Glucose Ketones Leukocytes Nitrite Labor Signs Protein Cervic Dilation Cervic Effacement Cervic Station neg trace Type Weight in lbs Pre/Post Dialysis Refused 210.752437915050 BP Diastolic BP Location Tested BP Systolic BP Type 73 115 Fetus Heart Rate Present Fetus Movement A Yes Comments patient is having some contr actions, pain, discharge, swelling, heartburn and some nausea. declines otc meds, +FM discussed kick counts, precautions and education, bpp 10/10 f/u one week Flowsheet Date 08/06/2024 Dowd Score Blood Edema Fundus Height Fundus Units Glucose Ketones Leukocytes Nitrite Labor Signs Protein Cervic Dilation Cervic Effacement Cervic Station Type Weight in lbs Pre/Post Dialysis Refused Weight 210.078671189278 BP Diastolic BP Location Tested BP Systolic BP Type 73 115 Fetus Heart Rate Present Fetus Movement Comments Flowsheet Date 08/11/2024 Dowd Score Blood Edema Fundus Height Fundus Units Glucose Ketones Leukocytes Nitrite Labor Signs Protein Cervic Dilation Cervic Effacement Cervic Station Type Weight in lbs Pre/Post Dialysis Refused BP Diastolic BP Location Tested BP Systolic BP Type Fetus Heart Rate Present Fetus Movement Comments Flowsheet Date 08/13/2024 Dowd Score Blood Edema Fundus Height Fundus Units Glucose Ketones Leukocytes Nitrite Labor Signs Protein Cervic Dilation Cervic Effacement Cervic Station Type Weight in lbs Pre/Post Dialysis Refused BP Diastolic BP Location Tested BP Systolic BP Type Fetus Heart Rate Present Fetus Movement Comments Flowsheet Date 08/13/2024 Dowd Score Blood Edema Fundus Height Fundus Units Glucose Ketones Leukocytes Nitrite Labor Signs Protein Cervic Dilation Cervic Effacement Cervic Station 2cm 50% Type Weight in lbs Pre/Post Dialysis Refused Weight 215.418378653466 BP Diastolic BP Location Tested BP Systolic BP Type 79 L arm 121 sitting Fetus Heart Rate Present Fetus Movement Comments bpp 8/8 doing well ok to swi m +FM polyhydramnios, has IOL next week, precautions and education Flowsheet Date 08/13/2024 Dowd Score Blood Edema Fundus Height Fundus Units Glucose Ketones Leukocytes Nitrite Labor Signs Protein Cervic Dilation Cervic Effacement Cervic Station Type Weight in lbs Pre/Post Dialysis Refused BP Diastolic BP Location Tested BP Systolic BP Type Fetus Heart Rate Present Fetus Movement Comments Menstrual History Last Menstrual Date Menses Monthly [...]
[2024-08-19 10:16] LABS: OBXCEM ROM Plus Negative (Negative)
== END 2024-08-19 10:00 | disposition home or self-care (01) ==
LOC: ANHOBOP 10:03 → ANHLDR 10:04
PROVIDERS: PCP Family Medicine; Visit Provider Advanced Practice Midwife
DX: O42.90 Premature rupture of membranes, unspecified as to length of time between rupture and onset of labor, unspecified weeks of gestation (principal); Z3A.00 Weeks of gestation of pregnancy not specified
CPT/HCPCS: 59025; 84112; 99199

== ENCOUNTER 2024-08-19 16:56 | Inpatient (IN) | payer BC, SELFPAY ==
--- OUTSIDE RECORDS SUMMARY | 2024-08-19 17:00 | XMS_ITS | Clinical Summary ---
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
[2024-08-19 17:43] VITALS: BMI 32.6
--- NOTE | 2024-08-19 17:46 | LDADM ---
This patient, Uma Hernandez, was admitted to Labor/Delivery/Recovery 109 on 08/19/24 at 16:56. Plans for labor, pain management and were discussed with patient. Patient/family oriented to hospital policies and general routines including ID bracelet, bed and alarms, visiting hours, pain management, procedures, bathroom and other care routines, personal items, smoking policy, room service/diet and guest tray routines, security routines, and visiting hours. Patient/Family are encouraged to report perceived risks to care and to ask questions if they do not understand what they are told or what they should do. See OBIX for further documentation.
[2024-08-19 18:02] LABS: Hematocrit 34.6 % (37.0-47.0); Hemoglobin 11.6 g/dL (12.0-15.0); Immature Granulocyte Percent A 0.5 % (0-0.5); Lymphocytes Absolute Auto 1.50 K/mm3 (0.9-3.2); Mean Corpuscular HGB Conc 33.5 g/dl (32-36); Mean Corpuscular Hemoglobin 29.8 pg (26-34); Mean Corpuscular Volume 88.9 fl (80-100); Nucleated Red Blood Cells Absolute Auto 0.000 K/mm3 (0.0-0.012); Nucleated Red Blood Cells Perc 0.0 % (0.0-0.2); Platelet Count Result 167 k/mm3 (150-375); Red Blood Count 3.89 M/mm3 (4.2-5.4); White Blood Count 10.5 K/mm3 (4.5-10.0)
[2024-08-19 18:15] VITALS: RESP 18; TEMP 36.6
[2024-08-19 18:27] VITALS: BP 133/83; PULSE 97
[2024-08-19 19:01] LABS: Syphilis IgG/IgM Antibody Non-Reactive (Nonreactive)
[2024-08-19 20:37] LABS: Add Urine Microscopic? YES; Appearance Urine Cloudy (Clear); Glucose Urine UA Negative (Negative); Leukocyte Esterase Ur Trace LEU/UL (Negative); Need Manual Microscopic Reviewed; Nitrate Urine Negative (Negative); Non Pathogenic Casts 0-2; Specific Grav Ur 1.011 (1.001-1.035)
[2024-08-19] MEDS: LACTATED RINGERS 1,000 ML 125 ML IV CONT (21:39)
[2024-08-19 22:00] VITALS: RESP 16; TEMP 36.4
[2024-08-19 22:37] VITALS: BP 139/77; PULSE 81; RESP 20; TEMP 36.4
[2024-08-20] VITALS (97 sets, daily range): BP systolic 112–149; BP diastolic 56–100; PULSE 75–127; RESP 15–18; TEMP 36.4–37.2; O2SAT 89–100
--- NOTE | 2024-08-20 01:25 | P.PNAN_ITS ---
Anes - Eval Pre Procedure Procedure: Labor epidural Date/Time: 08/20/24 01:25 Surgeon: Master Preop Diagnosis: Abdominal pain with contractions Pre Op Diagnosis: IOL Patient Data Age: 28 Gender: F Height: 1.73 m Weight: 97.5 kg Last Vital Signs Temp 97.6 F 08/19/24 22:37 Pulse 81 08/19/24 22:37 Resp 20 08/19/24 22:37 BP 139/77 08/19/24 22:37 O2 Del Method Room Air 08/19/24 17:43 Allergies Allergy/AdvReac Type Severity Reaction Status Date / Time nitrofurantoin Allergy Unknown RASH Verified 07/29/24 12:46 Home Medications ?Medication ?Instructions ?Recorded ?Confirmed ?Type vitamin #56-iron 35 mg 1 cap PO DAILY 07/01/24 08/19/24 History and 5 mg-folic acid 1 mg-dha capsule Laboratory Tests 08/19/24 17:35 WBC 10.5 H K/mm3 (4.5-10.0) RBC 3.89 L M/mm3 (4.2-5.4) Hgb 11.6 L g/dL (12.0-15.0) Hct 34.6 L % (37.0-47.0) MCV 88.9 fl (80-100) MCH 29.8 pg (26-34) MCHC 33.5 g/dl (32-36) RDW 13.6 % (11.5-14.5) Plt Count 167 k/mm3 (150-375) MPV 12.5 H fl (7.4-10.4) Immature Gran % (Auto) 0.5 % (0-0.5) Neut % (Auto) 74.2 H % (45.5-73.1) Lymph % (Auto) 14.4 L % (18.3-44.2) [place] % (Auto) 9.3 H % (2.6-8.5) Eos % (Auto) 1.3 % (0-4.4) Baso % (Auto) 0.3 % (0.2-1.2) Lymph # (Auto) 1.50 K/mm3 (0.9-3.2) [place] # (Auto) 1.0 H K/mm3 (0.1-0.6) Eos # (Auto) 0.1 K/mm3 (0-0.3) Baso # (Auto) 0.0 K/mm3 (0.0-0.1) Abs Immat Gran (auto) 0.05 H K/mm3 (0.00-0.031) Absolute Neuts (auto) 7.8 H K/mm3 (1.3-6.7) Absolute Nucleated RBC 0.000 K/mm3 (0.0-0.012) Nucleated RBC % 0.0 % (0.0-0.2) Urine Color Yellow (Yellow) Urine Appearance Cloudy H (Clear) Urine pH 7.0 (5.0-9.0) Ur Specific [place] 1.011 (1.001-1.035) Urine Protein Trace mg/dL (Negative) Urine Glucose (UA) Negative mg/dL (Negative) Urine Ketones Negative mg/dL (Negative) Ur Blood (Man) 3+ H (Negative) Urine Nitrate Negative (Negative) Urine Bilirubin Negative (Negative) Urine Urobilinogen 0.2 mg/dL (<2.0) Add Ur Microanalysis Reviewed Leukocyte Esterase Rfl Trace H TIMMY/UL (Negative) Urine RBC >100 H /hpf (0-2) Urine WBC 6-10 H /hpf (0-3) Ur Squamous Epith Cells None seen /hpf (Few) Urine Bacteria 1+ H /hpf Urine Casts 0-2 Urine Mucus Present /lpf Syphilis IgG/IgM Ab Non-reactive (Nonreactive) Blood Type B Positive Antibody Screen Negative : gestational age HCG: positive Patient hx anesthesia problems: none Family hx anesthesia problems: none Results Review: All pre-operative results and documents have been reviewed as part of the pre- operative evaluation. [facility] Past Medical History Medical History Marijuana abuse and not yet delivered in first trimester Overweight (BMI 25.0-29.9) No pertinent past medical history Surgical History Surgical History No pertinent past surgical history Family History Family History Mother Hyperthyroidism Father ADD (attention deficit disorder) Social History Social History (Reviewed 12/29/22 @ 12:36 by TIMMY Sams Smoking status: Never smoker Alcohol intake: current Alcohol use details: social Substance use: never Substance use type: marijuana Do You Feel Safe in your Home?: Yes Lack of Transportation: No Lack of Food: Never True Current Housing: I Have Housing Concerned About Future Housing: No Difficulty Paying Gas/Electric Bills: No Difficulty Paying for Meds: No Currently Unemployed: No Education: Associate Degree Difficulty w/ Childcare or Family Care: No Additional occupation/education comments: [employer] Gender identity (if verbalized by the patient): Female Sexual Orientation (if Verbalized by the Patient): Straight or Heterosexual Spiritual care concerns: No Exam Day of Procedure 08/20/24 01:25 Patient weight: overweight Airway: Mallampati scale class III
[2024-08-20] MEDS: OXYTOCIN 30 UNITS/NS 500 ML 30 UNITS/500 ML BAG IV CONT (04:30)
[2024-08-20] MEDS: LACTATED RINGERS 1,000 ML 125 ML IV CONT (05:39)
--- NOTE | 2024-08-20 07:41 | WPDOBADMIT ---
Obstetrics - Admit Note Admission Note: record reviewed. No pertinent additions to the history and/or any subsequent changes in the physical findings that are not consistent with the expected course of the were found. Additions to the history and/or subsequent changes in the physical findings follow. Admit for IOL, polyhydramnios, SVE /
[2024-08-20] MEDS: OXYTOCIN 30 UNITS/NS 500 ML 30 UNITS/500 ML BAG 999 UNITS IV CONT (12:07)
--- NOTE | 2024-08-20 12:21 | PM.OBPRVD ---
OB - Vaginal Delivery Note Procedure Delivery date: 08/20/24 Events: Polyhydramnios Induction method: AROM, Per Misoprostol Protocol and Per Pitocin Protocol Delivery monitor: External FHT Route of delivery: Episiotomy description: Midline Laceration Description: Perineal - 2nd Degree Delivery repair: vicryl Specimen: No Quantitative Blood Loss (ml): 500 Anesthesia type: Epidural Disposition: Floor Narrative: majority of blood loss from vaginal laceration [place] Baby Date of : 08/20/24 Time of : 12:03 Infant gender: Female presentation: vertex position: Left Occiput Anterior Placenta delivery description: Spontaneous Cord Vessel Description: 3 Vessels score one minute: 8 score five minutes: 9
[2024-08-20] MEDS: OXYTOCIN 30 UNITS/NS 500 ML 30 UNITS/500 ML BAG 125 UNITS IV CONT (13:01)
[2024-08-20] MEDS: ACETAMINOPHEN 325 MG TABLET 650 MG PO ×2 (13:25→22:35)
--- NOTE | 2024-08-20 16:10 | PC.NURSE ---
Primary RN requested assistance. Patient and her significant other have baby at the breast, still in her swaddle. Dad is extremely hands on and attempting to elicit a latch. Suggested that baby be unwrapped and placed skin to skin to keep her awake. Baby is eager and rooting. Dad wanted to express some colostrum so patient was educated on hand expression and that it takes practice to become proficient. Dad was massaging and compressing the breast while mom observed. Mom has very short, almost flat nipples. Offered to teach mom cross cradle position so that she can have better control of baby's head. She sat up further in bed but chose to continue using a cradle hold. Described to patient and significant other that creating a bite for baby may be necessary and that some babies need the breast to be held throughout the feeding. Mom tried once to hold her breast and then dad took over trying to make the bite. After 10 minutes at bedside, instructed patient and significant other to call out if they would like any other assistance. No hands on assistance was accepted from at this time. Reported to primary RN.
--- NOTE | 2024-08-20 16:45 | PC.NURSE ---
Patient set up with a breast pump due to ineffective feeding and maternal preference. Baby hasn't eaten since the initial feed after delivery. Mother was shown proper sizing and placement of flanges (measured at 20mm so 24mm flange), pump settings, and cleaning of pump parts. Recommended 15 minutes of pumping both breasts simultaneously. Patient is instructed to call out when she is ready to pump so we can review settings. Patient provided with a basin for cleaning parts between uses. Breast milk storage guidelines given. Discussed use of expressed breast milk by placing drops of milk in baby?s mouth with a clean finger, syringe feeding, or cup feeding.? Primary RN updated.??
--- NOTE | 2024-08-20 17:18 | OBPPTRN ---
Patient and baby transferred to post room #281 via ( wheelchair) Support person present. Oriented to unit, room, information board, rooming in, admission packet and security measures. Patient verbalizes understanding.
[2024-08-21 04:00] VITALS: BP 115/70; PULSE 95; RESP 18; TEMP 36.4; O2SAT 98
[2024-08-21 05:14] LABS: Hematocrit 25.8 % (37.0-47.0); Hemoglobin 8.6 g/dL (12.0-15.0)
[2024-08-21 07:30] VITALS: BP 118/67; PULSE 95; RESP 16; TEMP 36.7; O2SAT 98
--- NOTE | 2024-08-21 08:19 | P.PNOB_ITS ---
OB - PN: Subj Subjective Date/time seen: 08/21/24 08:19 Interval history: PPD#1 Doing well, pain controlled Voiding without issue , working on latching Tolerating general diet OB - PN: Obj Data Labs 08/21/24 04:47 Labs: Laboratory Results - last 24 hr 08/21/24 04:47 Hgb 8.6 L D Hct 25.8 L OB - PN A/P Assessment and Plan (1) (spontaneous vaginal delivery): Code(s): O80 - Encounter for full-term uncomplicated delivery Status: Acute (2) Acute blood loss anemia: Code(s): D62 - Acute posthemorrhagic anemia Status: Acute Assessment and Plan: - Hgb 11.6 > 8.6 - IV venofer x1 ordered Plan day: 1 Plan: routine care Time Spent With Patient Time: Total time spent is greater than 50% in coordination of care (as documented) at patient's floor/unit and/or counseling patient: Review of Systems 2 Review of Systems: All systems reviewed & are unremarkable except as noted in HPI and below Exam 2 Const: General: comfortable and no acute distress O rientation/consciousness: patient oriented x3 Resp: Effort & Inspection: normal respiratory effort
[2024-08-21] MEDS: DOCUSATE SODIUM 100 MG CAPSULE PO ×2 (08:48→17:26)
[2024-08-21] MEDS: ACETAMINOPHEN 325 MG TABLET 650 MG PO ×2 (08:49→17:26)
[2024-08-21] MEDS: IRON SUCROSE COMPLEX 200 MG in SODIUM CHLORIDE 0.9% IV 100 ML 220 MG IVPB (09:28)
[2024-08-21 12:18] VITALS: BP 112/64; PULSE 93; RESP 16; TEMP 37.1; O2SAT 97
--- NOTE | 2024-08-21 13:20 | PC.NURSE ---
Infant is feeding much better today. She was very sleepy last night and mom pumped and gave expressed milk. Mother verbalizes she is able to independently latch with appropriate positioning and alignment. She denies any nipple discomfort and is responsively . Infant is currently meeting outcomes for weight, output, jaundice, blood sugar and feeding frequencies of 8-12 times in 24 hours. Primary RN did a latch check today. Mother declines any additional assistance or education at this time. Mother is encouraged to call for assistance if her doesn?t latch, pain with latching, questions or concerns. Mother voiced understanding of information shared along with the mom/baby guide for an additional resource. Reported to the Primary RN.
--- NOTE | 2024-08-21 14:16 | WPDANLDPN2 ---
Anes-Prog Note L&D Date/Time: 08/21/24 14:16 Comfortable throughout: labor and delivery Neuraxial method: epidural Epidural/Spinal procedure site: clean & non-tender Neuro status: Neuro function grossly intact. Vital Signs: Last Vital Signs Temp 37.1 C 08/21/24 12:18 Pulse 93 08/21/24 12:18 Resp 16 08/21/24 12:18 BP 112/64 08/21/24 12:18 Pulse Ox 97 08/21/24 12:18 O2 Del Method Room Air 08/21/24 07:50 Pain score (VAS): 0 I/O: Intake & Output 08/20/24 08/21/24 08/21/24 23:59 07:59 15:59 Intake Total 64 Balance 64 Patient feedback: Patient satisfied with anesthetic care.
[2024-08-21 20:30] VITALS: BP 127/78; PULSE 63; RESP 18; TEMP 36.6; O2SAT 100
[2024-08-22 07:50] VITALS: BP 116/71; PULSE 91; RESP 18; TEMP 36.9; O2SAT 98
--- NOTE | 2024-08-22 09:34 | P.PNOB_ITS ---
OB - PN: Subj Subjective Date/time seen: 08/22/24 09:34 Interval history: PPD#2 Doing well, pain controlled Voiding without issue going well Ready for discharge home OB - PN: Obj Data Labs 08/21/24 04:47 OB - PN A/P Plan day: 2 Plan: routine care and discharge home Time Spent With Patient Time: Total time spent is greater than 50% in coordination of care (as documented) at patient's floor/unit and/or counseling patient: Review of Systems 2 Review of Systems: All systems reviewed & are unremarkable except as noted in HPI and below Exam 2 Const: General: comfortable and no acute distress O rientation/consciousness: patient oriented x3 Resp: Effort & Inspection: normal respiratory effort
--- NOTE | 2024-08-22 09:37 | P.DS_ITS ---
DS: Admitting Diagnosis Discharge Date 08/22/24 Admitting Diagnosis induction of labor DS: Discharge Diagnosis Discharge Diagnosis (1) Acute blood loss anemia: Code(s): D62 - Acute posthemorrhagic anemia Status: Acute (2) (spontaneous vaginal delivery): Code(s): O80 - Encounter for full-term uncomplicated delivery Status: Acute OB - DS: Summary OB Procedures : None OB Procedures Intrapartum: Spontaneous Vag Delivery OB Procedures: : None Peripartum Data Laceration Description: Perineal - 2nd Degree Episiotomy description: Midline Time Spent with Patient Time attestation: Total time spent providing and/or coordinating discharge services: Discharge Plan Discharge Attending physician on discharge: Del Johnson Consulting providers: Cyndee Hill Discharging Clinician: Del Johnson Patient Disposition: Home Activity: may shower, as tolerated and pelvic rest Diet: as tolerated Patient Instructions: Antibiotic Form Patient Language: Korean Stand Alone Forms: General Discharge Information Follow-up/Referrals: Cyndee Hill, CNM [Certified Nurse Regional Merchandising Manager] - 4 Weeks Discharge Medications: New docusate sodium 100 mg Capsule 100 mg PO BID PRN (Reason: Constipation) Qty: 60 0RF ibuprofen 600 mg Tablet 600 mg PO Q6H PRN (Reason: Cramping) Qty: 30 0RF ferrous sulfate 325 mg (65 mg iron) tablet,delayed release (DR/EC) 325 mg PO DAILY Qty: 60 2RF Continued PNV #[id number] acid-dha 35 mg iron-5 mg iron-1 mg capsule 1 cap PO DAILY Date of admission: 08/19/24 16:56 Primary Care Provider: Carole,Elder Meraz Admitting Provider: Marcellus Thao Attending physician on admission: Marcellus Thao Condition: Stable
[2024-08-22] MEDS: MEASLES,MUMPS,RUBELLA VACCINE 0.5 ML VIAL SUB-Q (10:21)
[2024-08-22] MEDS: DOCUSATE SODIUM 100 MG CAPSULE PO (10:21)
[2024-08-23 09:32] VITALS: BP 125/72; PULSE 100; RESP 18; TEMP 36.6; O2SAT 99
== END 2024-08-22 12:00 | disposition home or self-care (01) | DRG 806 ==
LOC: ANHOB2 08-22 09:37 → ANHLDR 08-26 06:34
PROVIDERS: Advanced Practice Midwife; Admitting Provider Obstetrics & Gynecology; PCP Family Medicine; Visit Provider Obstetrics & Gynecology
DX: O40.3XX0 Polyhydramnios, third trimester, not applicable or unspecified (principal); Z37.0 Single live birth; Z3A.39 39 weeks gestation of pregnancy; D62 Acute posthemorrhagic anemia; O72.1 Other immediate postpartum hemorrhage; O99.02 Anemia complicating childbirth
CPT/HCPCS: 36415; 59025; 81001; 84112; 85014; 85018; 85025; 86593; 86850; 86900; 86901; 87086; 90710; 99199; A9270; J1756; J2590; J2795; J7120

== ENCOUNTER 2024-08-31 08:29 | Emergency (ER) | payer BC, SELFPAY ==
[2024-08-31 08:40] VITALS: BP 117/78; PULSE 94; RESP 16; TEMP 36.4; O2SAT 100
[2024-08-31 09:09] LABS: EDUAAPPEAR Cloudy; EDUABILI Negative (Negative); EDUABLOOD 3+ (Negative); EDUACOLOR1 Light/Pale; EDUAGLUCOSE Negative (Negative); EDUAKETONE Negative (Negative); EDUALEUKO 1+ (Negative); EDUANITRATE Negative (Negative); EDUAPH 5.5; EDUAPROTEIN Negative (Negative); EDUASPGRAVITY 1.010; EDUAUROBILI 0.2
--- NOTE | 2024-08-31 09:10 | ED.FEMALEGU ---
HPI - Female Genitourinary General Chief complaint: Urogenital-Female Stated complaint: UTI SYMPTOMS Time Seen by Provider: 08/31/24 09:03 Source: patient and RN notes reviewed Mode of arrival: ambulatory Limitations: no limitations History of Present Illness HPI Narrative: Patient presents today complaining 4 to five-day history of urinary frequency and dysuria. Two days ago she did have some sharp lower abdominal pain that has since resolved. She is 11 days , , with no complications. She did contact her OBGYN regarding the abdominal pain and was told to take ibuprofen. If the pain did not resolve she was told to go to the emergency department. Denies fever. Patient is . Related Data Home Medications ?Medication ?Instructions ?Recorded ?Confirmed ?Last Taken ?Type vitamin #56-iron 35 mg 1 cap PO DAILY 07/01/24 08/19/24 08/19/24 History and 5 mg-folic acid 1 mg-dha capsule Allergies Allergy/AdvReac Type Severity Reaction Status Date / Time nitrofurantoin Allergy Unknown RASH Verified 08/31/24 09:01 [facility] Past Medical History Medical History Marijuana abuse and not yet delivered in first trimester Overweight (BMI 25.0-29.9) No pertinent past medical history Surgical History Surgical History No pertinent past surgical history Family History Family History Mother Hyperthyroidism Father ADD (attention deficit disorder) Social History Social History Smoking status: Never smoker Alcohol intake: current Alcohol use details: social Substance use: never Substance use type: marijuana Do You Feel Safe in your Home?: Yes Lack of Transportation: No Lack of Food: Never True Current Housing: I Have Housing Concerned About Future Housing: No Difficulty Paying Gas/Electric Bills: No Difficulty Paying for Meds: No Currently Unemployed: No Education: Associate Degree Difficulty w/ Childcare or Family Care: No Additional occupation/education comments: [employer]ed [employer] Phot[employer] Gender identity (if verbalized by the patient): Female Sexual Orientation (if Verbalized by the Patient): Straight or Heterosexual Spiritual care concerns: No Comments At time of signature, I have reviewed and agree with nursing past medical, surgical, social and family history unless otherwise noted. Please see nursing chart for further information. There is no relevant family history pertinent to the presenting complaint Exam Narrative: GENERAL: Well-appearing, well-nourished, and in no acute distress. HEAD: Normocephalic, atraumatic. EYES: EOMI. No redness or drainage. Conjunctivae normal. ENT: Mucous membranes pink and moist. NECK: Normal AROM. CHEST: No respiratory distress. Clear to auscultation. HEART: Regular rate and rhythm. No murmur appreciated. ABDOMEN: Soft, nontender, nondistended, normal active bowel sounds. -CVAT EXTREMITIES: Normal range of motion. No edema. SKIN: Warm, dry, no rash. Capillary refill normal. Normal skin turgor. NEURO: No focal deficits. Alert and oriented x3. Gait steady. PSYCH: Normal affect. No signs of depression or anxiety. Course Course Level of Care: Express Care Visit Vital Signs Vital signs: Vital Signs Temperature 97.6 F 08/31/24 08:40 Pulse Rate 94 08/31/24 08:40 Respiratory Rate 16 08/31/24 08:40 Blood Pressure 117/78 08/31/24 08:40 Pulse Oximetry 100 08/31/24 08:40 Temperature 97.6 F 08/31/24 08:40 Pulse Rate 94 08/31/24 08:40 Respiratory Rate 16 08/31/24 08:40 Blood Pressure 117/78 08/31/24 08:40 Pulse Oximetry 100 08/31/24 08:40 Reviewed MDM - Female Genitourinary MDM Narrative Medical decision making narrative: Patient is pleasant 28-year-old female that is 11 days , , spontaneous vaginal delivery without complications. She is complaining of 4 to five-day history of dysuria, urinary frequency. Initially she had some lower abdominal pain that has since resolved. Denies flank pain or fever. She is exclusively . Urinalysis shows 1+ leukocytes and 3+ blood. Blood is likely related to her bleeding. Given her symptoms, will treat with Keflex for presumed UTI. Culture pending. Vital signs stable. She is stable for outpatient treatment without any red flag symptoms that would warrant transfer to a higher level of care at this time. If symptoms worsen, patient has been instructed to notify her OBGYN or go to the emergency department for further evaluation and treatment. Differential Diagnosis Differential diagnosis: Likely urinary tract infection and cystitis Lab Data Attestation: I reviewed the patient's lab results. Labs: Lab Results 08/31/24 Range/Units 09:06 POC Urine Color Light/pale POC Urine Clarity Cloudy POC Urine pH 5.5 POC Ur Specif [place] 1.010 POC Urine Protein Negative (Negative) POC Ur Glucose (UA) Negative (Negative) POC Urine Ketones Negative (Negative) POC Urine Blood 3+ (Negative) POC Urine Nitrite Negative (Negative) POC Urine Bilirubin Negative (Negative) POC Urine Urobilinogen 0.2 POC U Leukocyte Esteras 1+ (Negative) Critical Care Time Critical Care Time Critical Care Time: No Discharge Plan Discharge Clinical Impression: Urinary tract infection Qualifiers: Urinary tract infection type: acute cystitis Hematuria presence: with hematuria Qualified Code(s): N30.01 - Acute cystitis with hematuria Patient Disposition: Home Condition: Stable Instructions: Antibiotic Form, Urinary Tract Infection in Women (ED) Additional Instructions: Your urine shows infection today. Take Keflex as prescribed until gone. Your urine will be sent of for a culture to identify what type of bacteria is causing your infection. If the culture shows that your medication will not get rid of your infection, you will be notified and a new antibiotic will be called in for you. If your symptoms worsen to include fever, sweats, chills, nausea, vomiting, severe abdominal or back pain, please go to the ER or contact your OBGYN for further evaluation. Patient Language: Citizen Of [place] Prescriptions: New cephalexin 500 mg capsule 500 mg PO BID 7 Days Qty: 14 0RF No Action PNV #[id number] acid-dha 35 mg iron-5 mg iron-1 mg capsule 1 cap PO DAILY docusate sodium 100 mg Capsule 100 mg PO BID PRN (Reason: Constipation) Qty: 60 0RF ibuprofen 600 mg Tablet 600 mg PO Q6H PRN (Reason: Cramping) Qty: 30 0RF ferrous sulfate 325 mg (65 mg iron) tablet,delayed release (DR/EC) 325 mg PO DAILY Qty: 60 2RF Follow-up/Referrals: Batsheva,Elder Meraz MD [Primary Care Provider] - Time of Disposition: 09:16
== END 2024-08-31 09:28 | disposition home or self-care (01) ==
PROVIDERS: Emergency Provider Nurse Practitioner; PCP Family Medicine
DX: O86.22 Infection of bladder following delivery (principal); N30.01 Acute cystitis with hematuria
CPT/HCPCS: 81003; 87086; 99213; G0463